=== PATIENT | male | born 1960 | race Caucasian/White ===

== ENCOUNTER 2018-11-11 10:11 | Outpatient (REF) | payer OTHER, SELFPAY ==
[2018-11-11 22:18] LABS: ALT 45 U/L (12-78); AST 22 U/L (15-37); Albumin 3.6 g/dL (3.4-5.0); Alkaline Phosphatase 58 U/L (46-116); BUN 16 mg/dL (7-18); Bilirubin, Total 0.4 mg/dL (0.2-1.0); CREATININE 0.87 mg/dL (0.70-1.30); Calculated LDL 162 mg/dL; Chloride 102 mmol/L (98-107); Cholesterol 242 mg/dL (50-200); Glucose 128 mg/dL (70-100); HDL Cholesterol 38 mg/dL (40-60); Sodium 139 mmol/L (136-145); Total Protein 7.5 g/dL (6.4-8.2); Triglyceride 210 mg/dL (30-150)
[2018-11-15 12:28] LABS: PSA, Screening 1.1 ng/ml (0-4.5)
== END 2018-11-11 10:31 ==
LOC: NCHCN 10:11
PROVIDERS: PCP Family Medicine; Visit Provider Family Medicine
DX: Z00.00 Encounter for general adult medical examination without abnormal findings (principal); E78.00 Pure hypercholesterolemia, unspecified; I10 Essential (primary) hypertension; E11.9 Type 2 diabetes mellitus without complications; N40.2 Nodular prostate without lower urinary tract symptoms; Z12.5 Encounter for screening for malignant neoplasm of prostate
CPT/HCPCS: 80053; 80061; 83721; 84153

== ENCOUNTER 2019-02-02 08:42 | Outpatient (REF) | payer OTHER, SELFPAY ==
[2019-02-02 22:38] LABS: ALT 42 U/L (16-63); AST 20 U/L (15-37); Albumin 3.8 g/dL (3.4-5.0); Alkaline Phosphatase 58 U/L (46-116); Anion Gap 12.5 mmol/L (3-11); BUN 10 mg/dL (7-18); Bilirubin, Total 0.4 mg/dL (0.2-1.0); CO2 25.5 mmol/L (21.0-32.0); CREATININE 0.92 mg/dL (0.70-1.30); Calcium 8.9 mg/dL (8.5-10.1); Calculated LDL 126 mg/dL; Chloride 101 mmol/L (98-107); Cholesterol 211 mg/dL (50-200); Glucose 130 mg/dL (70-100); HDL Cholesterol 39 mg/dL (40-60); Potassium 3.8 mmol/L (3.5-5.1); Sodium 139 mmol/L (136-145); Total Protein 7.7 g/dL (6.4-8.2); Triglyceride 233 mg/dL (30-150)
[2019-02-03 05:02] LABS: Vitamin D 25 Total 17.1 ng/ml (30-100)
== END 2019-02-02 09:02 ==
LOC: NCHCN 08:42
PROVIDERS: PCP Family Medicine; Visit Provider Family Medicine
DX: E11.9 Type 2 diabetes mellitus without complications (principal); E78.00 Pure hypercholesterolemia, unspecified; M79.10 Myalgia, unspecified site
CPT/HCPCS: 80053; 80061; 82306; 84443

== ENCOUNTER 2019-04-26 20:37 | Outpatient (REF) | payer OTHER, SELFPAY ==
[2019-04-26 21:24] LABS: Hemoglobin A1C 6.6 % (4.5-6.2)
[2019-04-27 09:00] LABS: Vitamin D 25 Total 31.5 ng/ml (30-100)
== END 2019-04-26 20:57 ==
LOC: NCHCN 20:37
PROVIDERS: PCP Family Medicine; Visit Provider Family Medicine
DX: E11.9 Type 2 diabetes mellitus without complications (principal)
CPT/HCPCS: 82306; 83036

== ENCOUNTER 2019-10-25 22:30 | Outpatient (REF) | payer OTHER, SELFPAY ==
[2019-10-25 22:22] LABS: COMMENT (LAB VIEW ONLY) 33.18 mg/dL; Microalb ug/mg Crea 27.7 ug/mg Cr
== END 2019-10-25 22:50 ==
LOC: NCHCN 22:30
PROVIDERS: PCP Family Medicine; Visit Provider Family Medicine
DX: E11.9 Type 2 diabetes mellitus without complications (principal)
CPT/HCPCS: 82043; 82570

== ENCOUNTER 2020-04-18 08:46 | Outpatient (REF) | payer OTHER, SELFPAY ==
[2020-04-18 22:44] LABS: ALT 44 U/L (16-63); AST 19 U/L (15-37); Albumin 3.9 g/dL (3.4-5.0); Alkaline Phosphatase 52 U/L (46-116); Anion Gap 10.6 mmol/L (3-11); BUN 13 mg/dL (7-18); Bilirubin, Total 0.4 mg/dL (0.2-1.0); CO2 25.4 mmol/L (21.0-32.0); CREATININE 1.06 mg/dL (0.70-1.30); Calcium 9.2 mg/dL (8.5-10.1); Calculated LDL 126 mg/dL (<100); Chloride 102 mmol/L (98-107); Cholesterol 224 mg/dL (<200); Glucose 159 mg/dL (74-106); HDL Cholesterol 40 mg/dL (40-60); Sodium 138 mmol/L (136-145); Total Protein 7.7 g/dL (6.4-8.2); Triglyceride 293 mg/dL (<150)
[2020-04-18 22:56] LABS: Hemoglobin A1C 7.4 % (<5.7)
[2020-04-19 04:43] LABS: Vitamin D 25 Total 40.3 ng/ml (30-100)
[2020-04-19 19:19] LABS: PSA, Screening 1.1 ng/mL (0.0-4.5)
== END 2020-04-18 09:06 ==
LOC: NCHCN 08:46
PROVIDERS: PCP Family Medicine; Visit Provider Family Medicine
DX: Z00.00 Encounter for general adult medical examination without abnormal findings (principal); I10 Essential (primary) hypertension; E11.9 Type 2 diabetes mellitus without complications; E55.9 Vitamin D deficiency, unspecified; M79.10 Myalgia, unspecified site; N40.2 Nodular prostate without lower urinary tract symptoms; N52.9 Male erectile dysfunction, unspecified; Z12.5 Encounter for screening for malignant neoplasm of prostate
CPT/HCPCS: 80053; 80061; 82306; 84153; 83036

== ENCOUNTER 2021-04-22 19:22 | Outpatient (REF) | payer OTHER, SELFPAY ==
[2021-04-22 19:08] LABS: COMMENT (LAB VIEW ONLY) 75.63 mg/dL; Microalb ug/mg Crea 9.4 ug/mg Cr
[2021-04-22 19:10] LABS: ALT 31 U/L (16-63); AST 13 U/L (15-37); Albumin 3.6 g/dL (3.4-5.0); Alkaline Phosphatase 55 U/L (46-116); Anion Gap 9.7 mmol/L (3-11); BUN 16 mg/dL (7-18); Bilirubin, Total 0.4 mg/dL (0.2-1.0); CO2 27.3 mmol/L (21.0-32.0); CREATININE 0.9 mg/dL (0.70-1.30); Calculated LDL 131 mg/dL (<100); Chloride 102 mmol/L (98-107); Cholesterol 195 mg/dL (<200); Glucose 135 mg/dL (74-106); HDL Cholesterol 42 mg/dL (40-60); Potassium 4.2 mmol/L (3.5-5.1); Sodium 139 mmol/L (136-145); Total Protein 7.3 g/dL (6.4-8.2); Triglyceride 112 mg/dL (<150)
[2021-04-23 17:56] LABS: PSA, Screening 1.5 ng/mL (0.0-4.5)
== END 2021-04-22 19:23 | disposition home or self-care (01) ==
LOC: NCHCN 19:22
PROVIDERS: PCP Family Medicine; Visit Provider Family Medicine
DX: E11.9 Type 2 diabetes mellitus without complications (principal); I10 Essential (primary) hypertension; E78.5 Hyperlipidemia, unspecified; Z00.00 Encounter for general adult medical examination without abnormal findings; Z12.5 Encounter for screening for malignant neoplasm of prostate
CPT/HCPCS: 80053; 80061; 84153; 82043; 82570; 83036

== ENCOUNTER 2022-02-25 16:15 | Outpatient (REF) | payer OTHER, SELFPAY ==
[2022-02-25 17:29] LABS: COMMENT (LAB VIEW ONLY) 43.57 mg/dL; Microalb ug/mg Crea 13.3 ug/mg Cr
== END 2022-02-25 16:16 | disposition home or self-care (01) ==
LOC: NCHCN 16:15
PROVIDERS: PCP Family Medicine; Visit Provider Family Medicine
DX: E11.9 Type 2 diabetes mellitus without complications (principal)
CPT/HCPCS: 82043; 82570

== ENCOUNTER 2022-05-30 11:50 | Outpatient (REF) | payer OTHER, SELFPAY ==
[2022-05-30 16:01] LABS: ALT 25 U/L (16-63); AST 22 U/L (15-37); Albumin 3.8 g/dL (3.4-5.0); Alkaline Phosphatase 52 U/L (46-116); Anion Gap 8.2 mmol/L (3-11); BUN 19 mg/dL (7-18); Bilirubin, Total 0.5 mg/dL (0.2-1.0); CO2 27.8 mmol/L (21.0-32.0); CREATININE 0.9 mg/dL (0.70-1.30); Calcium 9.4 mg/dL (8.5-10.1); Calculated LDL 117 mg/dL (<100); Chloride 102 mmol/L (98-107); Cholesterol 199 mg/dL (<200); Estimated GFR 95.37 (mL/min/1.73m2); Glucose 115 mg/dL (74-106); HDL Cholesterol 49 mg/dL (40-60); Potassium 3.9 mmol/L (3.5-5.1); Sodium 138 mmol/L (136-145); Total Protein 8.2 g/dL (6.4-8.2); Triglyceride 168 mg/dL (<150)
[2022-05-30 23:08] LABS: PSA, Screening 1.4 ng/mL (<=4.5)
== END 2022-05-30 11:51 | disposition home or self-care (01) ==
LOC: NCHCN 11:50
PROVIDERS: PCP Family Medicine; Visit Provider Family Medicine
DX: Z00.00 Encounter for general adult medical examination without abnormal findings (principal); E11.9 Type 2 diabetes mellitus without complications; I10 Essential (primary) hypertension; E78.00 Pure hypercholesterolemia, unspecified; Z12.5 Encounter for screening for malignant neoplasm of prostate
CPT/HCPCS: 80053; 80061; 84153

== ENCOUNTER 2023-01-06 21:42 | Outpatient (REF) | payer OTHER, MEDICARE, SELFPAY ==
[2023-01-06 21:31] LABS: COMMENT (LAB VIEW ONLY) 77.77 mg/dL; Microalb ug/mg Crea 10.8 ug/mg Cr
== END 2023-01-06 21:43 | disposition home or self-care (01) ==
LOC: NCHCN 21:42
PROVIDERS: PCP Family Medicine; Visit Provider Family Medicine
DX: E11.9 Type 2 diabetes mellitus without complications (principal)
CPT/HCPCS: 82043; 82570

== ENCOUNTER 2023-04-22 13:12 | Outpatient (REF) | payer OTHER, SELFPAY ==
[2023-04-22 15:41] LABS: Magnesium 1.7 mg/dL (1.8-2.4); TSH (W/Ref FT4) 1.11 uIU/mL (0.36-3.74); Vitamin B12 366 pg/mL (193-986)
[2023-04-22 16:00] LABS: Creatine Kinase 87 U/L (39-308)
== END 2023-04-22 13:13 | disposition home or self-care (01) ==
LOC: NCHCN 13:12
PROVIDERS: PCP Family Medicine; Visit Provider Family Medicine
DX: R25.3 Fasciculation (principal)
CPT/HCPCS: 82550; 82607; 83735; 84443

== ENCOUNTER 2023-07-01 17:36 | Outpatient (REF) | payer MEDICARE, SELFPAY ==
[2023-07-01 16:39] LABS: Hemoglobin A1C 6.2 % (<5.7)
[2023-07-01 16:57] LABS: ALT 39 U/L (16-63); AST 26 U/L (15-37); Albumin 3.7 g/dL (3.4-5.0); Alkaline Phosphatase 51 U/L (46-116); Anion Gap 10.6 mmol/L (3-11); BUN 9 mg/dL (7-18); Bilirubin, Total 0.4 mg/dL (0.2-1.0); CO2 26.4 mmol/L (21.0-32.0); CREATININE 0.9 mg/dL (0.70-1.30); Calcium 9.7 mg/dL (8.5-10.1); Calculated LDL 140 mg/dL (<100); Chloride 104 mmol/L (98-107); Cholesterol 222 mg/dL (<200); Estimated GFR 94.78 (mL/min/1.73m2); Glucose 131 mg/dL (74-106); HDL Cholesterol 51 mg/dL (40-60); Potassium 3.9 mmol/L (3.5-5.1); Sodium 141 mmol/L (136-145); Triglyceride 158 mg/dL (<150)
[2023-07-01 22:35] LABS: PSA, Screening 1.8 ng/mL (<=4.5)
== END 2023-07-01 17:37 | disposition home or self-care (01) ==
LOC: NCHCN 17:36
PROVIDERS: PCP Family Medicine; Visit Provider Family Medicine
DX: E78.00 Pure hypercholesterolemia, unspecified (principal); E11.9 Type 2 diabetes mellitus without complications; Z12.5 Encounter for screening for malignant neoplasm of prostate
CPT/HCPCS: 80053; 80061; 84153; 83036

== ENCOUNTER 2024-02-04 12:15 | Outpatient (REF) | payer MEDICARE, SELFPAY ==
--- OUTSIDE RECORDS SUMMARY | 2024-02-04 12:18 | XMS_ITS ---
Author Organization Unknown Address [address] [place] [address] [phone] Phone Care Team Providers Care Slate Roofer Name Role Phone JOURDAN GONSALES Registered Nurse Unavailable SHAHID Lemos Attending Unavailable MAC Lemos Primary Unavailable UNLISTED PROVIDER - REQUESTED Xhandoff Un available Results PT PROTHROMBIN TIME* - Colle ct Date/Time: 07/20/2022 10:44 [facility] ID: [id number] [address] [place] [address], [address] LOINC: 5902-2 Test Value Unit Reference Range Code Code System Flag PROTIME 10.4 seconds L=9.3 H=11.4 5902-2 LOINC INR 1.04 L=2.00 H=3.00 08136-3 LOINC L PTT PARTIAL THROMBOPLASTIN T JEAN* - Collect Date/Time: 07/20/2022 10:44 [facility] ID: [id number] [address] [place] [address], [phone] LOINC: 09126-5 Test Value Unit Reference Range Code Code System Flag PTT 24.8 seconds L=24.5 H=32.8 36298-9 LOINC TROPONIN HIGH SENSITIVITY* - Collect Date/Time: 07/20/2022 10:44 [facility] ID: [id number] [address] [place] [address], [address] LOINC: 06037-1 Test Value Unit Reference Range Code Code System Flag TROPONIN HS 7.2 pg/mL L=0.0 H=60.4 Specimen seq. RANDOM CBC W/ DIFFERENTIAL* - Colle ct Date/Time: 07/20/2022 10:44 [facility] ID: [id number] [address] [place] [address], [address] LOINC: 58926-5 Test Value Unit Reference Range Code Code System Flag WBC 11.03 th/cmm L=5.00 H=10.00 6690-2 LOINC H NEUT % 70.9 % L=40.0 H=80.0 LYMPH % 17.0 % L=10.0 H=50.0 MONO % 10.8 % L=2.0 H=12.0 19155-3 LOINC EOS % 0.5 % L=0.0 H=8.0 BASO % 0.3 % L=0.0 H=3.0 IG % 0.5 % L=0.0 H=1.1 2514-8 LOINC NRBC % 0.0 % L=0.0 H=0.0 15901-3 LOINC NEUT abs count 7.8 th/cmm L=1.6 H=8.4 751-8 LOINC LYMPH abs count 1.9 th/cmm L=1.5 H=4.0 731-0 LOINC MONO abs count 1.2 th/cmm L=0.2 H=1.0 742-7 LOINC H EOS abs count 0.1 th/cmm L=0.0 H=0.5 711-2 LOINC BASO abs count 0.0 th/cmm L=0.0 H=0.2 704-7 LOINC IG abs count 0.1 th/cmm L=0.0 H=0.1 93101-1 LOINC NRBC abs count 0.0 mil/cmm L=0.0 H=0.0 23436-8 LOINC RBC 5.02 mil/cmm L=4.30 H=6.20 789-8 LOINC HEMOGLOBIN 15.4 gm/dL L=13.0 H=17.0 718-7 LOINC HEMATOCRIT 45 % L=45 H=52 4544-3 LOINC MCV 89 fL L=82 H=92 787-2 LOINC MCH 30.7 pg L=27.0 H=31.0 785-6 LOINC MCHC 34.6 % L=32.0 H=36.0 786-4 LOINC RDW-SD 43.0 fL L=39.0 H=49.0 788-0 LOINC PLATELET COUNT 202 th/cmm L=150 H=450 777-3 LOINC BASIC METABOLIC PANEL (BMP) - Collect Date/Time: 07/20/2022 10:44 [facility] ID: [id number] - [id number] [address] [place], [place], [address] LOINC: 29249-9 Test Value Unit Reference Range Code Code System Flag GLUCOSE 142 mg/dL L=70 H=116 2345-7 LOINC H BUN 14 mg/dL L=6 H=25 3094-0 LOINC CREATININE 0.91 mg/dL L=0.67 H=1.17 2160-0 LOINC SODIUM SERUM 137 mmol/L L=136 H=145 2951-2 LOINC POTASSIUM SERUM 4.1 mmol/L L=3.4 H=5.2 2823-3 LOINC [place] SERUM 104 mmol/L L=96 H=110 2075-0 LOINC CARBON DIOXIDE (CO2) 25 mmol/L L=22 H=34 2028-9 LOINC ANION GAP 7.7 mmol/L 29290-4 LOINC CALCIUM SERUM 9.0 mg/dL L=8.2 H=10.2 80434-6 LOINC AGE 62 years eGFR (non-Afr.Amer.) 84 mL/min 58254-0 LOINC eGFR (Afr-Bulgarian) 101 mL/min 08635-9 [facility] PORT[facility] OR 1V - Co mpleted: 07/20/2022 10:56 LOINC: [facility] [place], [place] [address] PACS AUDIOMETRIC TECHNICIAN REPORT Patient Name: HARRIS,RACQUEL W MRN: Sex: : Age: [id number] M [id number] Account: Accession: Admit: StayType: [id number] 07/20/2022 E/R Ordered: Order ID: Submitted: Ordering Provider: 07/20/2022 10:47 [id number] JEANNIE FORMAN Completed: Technologist: Resulted: 07/20/2022 10:56 SLG 07/20/2022 13:26 Study Description: XR CHEST PORTABLE OR 1V Study Reason: Arrhythmia TECHNIQUE: 2D digital imaging was performed. COMPARISON: Prior chest x-ray 2016 FINDINGS: Single AP view Heart size is normal. The mediastinum is not widened. Lungs are clear. No infiltrates nor obvious pleural effusions. Atelectasis or scarring adjacent to the lower left heart border is unchanged from 2016. IMPRESSION: No acute pulmonary findings on this single AP portable view of the chest. Report Digitally Signed by Mane Capone on 07/20/2022 01:26 PM EST Social History Type Status Start Date End Date Code Code Syst em Smoking History Never smoker (Never Smoked) 080957530 SNOMED CT Sex Male Vital Signs Vital Sign Value Unit Schoolcraft Value Schoolcraft Unit Date/Time Recent/Initial? Code Code System Body Mass Index 29.65 kg/m2 07/20/2022 10:36 Initial 30226 -5 LOINC Systolic Blood Pressure 120 mm[Hg] 07/20/2022 12:30 Most Recent 8480- 6 LOINC Diastolic Blood Pressure 86 mm[Hg] 07/20/2022 12:30 Most Recent 8462- 4 LOINC Systolic Blood Pressure 124 mm[Hg] 07/20/2022 10:36 Initial 8480- 6 LOINC Diastolic Blood Pressure 79 mm[Hg] 07/20/2022 10:36 Initial 8462- 4 LOINC Body Surface Area 2.06 m2 07/20/2022 10:36 Initial 3140- 1 LOINC Height 172.720 0 cm 68.00 in 07/20/2022 10:36 Initial 8302- 2 LOINC O2 Saturation 96 % 2022 12:30 Most Recent 40270 -5 LOINC O2 Saturation 97 % 2022 10:36 Initial 50072 -5 LOINC Pulse 77.0 /min 07/20/2022 12:30 Most Recent 8867- 4 LOINC Pulse 148.0 /min 07/20/2022 10:36 Initial 8867- 4 LOINC Respiration 16 /min 07/21/19 12:30 Most Recent 9279- 1 LOINC Respiration 10 /min 07/21/19 10:36 Initial 9279- 1 LOINC Temperature 35.7 Claudia 96.3 F 07/21/19 10:36 Initial 8310- 5 LOINC Weight 88.45 kg 195.00 lbs 07/20/2022 10:36 Initial 12182 -7 LOINC Medications Medication Start Date End Date Route Frequency Dose Code Code System Medication Instructions Home Meds Xarelto 20MG Oral Tablet 07/20/2022 04/14/2023 ORAL DAILY 1 TABLET 6499916 RxNorm TAKE 1 TABLET ORAL DAILY Metoprolol Succinate 25MG Oral Tablet, Extended Release 07/05/2023 Unknown ORAL DAILY 1 TABLET 466795 RxNorm TAKE 1 TABLET ORAL DAILY Eliquis 5MG Oral Tablet 07/05/2023 Unknown ORAL TWICE A DAY 1 TABLET 2030796 RxNorm TAKE 1 TABLET ORAL TWICE A DAY Assessment You had the following problems:PALPITATIONS Hospital Discharge Instructions Should you have any questions prior to discharge, please contact a member of your healthcare team. If you have left the hospital and have any questions, please contact your primary care physician. Reason For Referral No Data Found Problems Problem Start Date Resolved Date Status Code Code System PALPITATIONS active 15024914 SNOMED- CT AFIB 07/05/2023 resolved 14307155 SNOMED-CT TYPE 2 DIABETES 07/05/2023 resolved 20772664 SNO MED-CT HYPERTENSION 07/05/2023 resolved 38454602 SNOMED -CT Allergies and Adverse Reactions Allergy Substance Reaction Severity Start Date Concern Status Co de Code System LIPITOR Active 749946 RxNorm Plan of Treatment No Data Found Encounters Encounter Diagnosis Start Date Code Code Sys tem Unspecified atrial fibrillation 07/20/2022 SNOMED-CT Personal Care Team Section Performer Name Performer Role Active Date Inactive Da te
--- OUTSIDE RECORDS SUMMARY | 2024-02-04 12:18 | XMS_ITS ---
Author Organization Unknown Address [address] [place] [address] [phone] Phone Care Team Providers Care Computing Architect Name Role Phone DANN CHOI Eddie Attending Unavailable MAC Lemos Primary Unavailable Social History Type Status Start Date End Date Code Code Syst em Smoking History Never smoker (Never Smoked) 054713924 SNOMED CT Sex Male Medications Medication Start Date End Date Route Frequency Dose Code Code System Medication Instructions Home Meds Xarelto 20MG Oral Tablet 07/20/2022 04/14/2023 ORAL DAILY 1 TABLET 0071674 RxNorm TAKE 1 TABLET ORAL DAILY Metoprolol Succinate 25MG Oral Tablet, Extended Release 07/05/2023 Unknown ORAL DAILY 1 TABLET 829815 RxNorm TAKE 1 TABLET ORAL DAILY Eliquis 5MG Oral Tablet 07/05/2023 Unknown ORAL TWICE A DAY 1 TABLET 4571968 RxNorm TAKE 1 TABLET ORAL TWICE A [...] Date Status Code Code System PALPITATIONS active 79759918 SNOMED- CT AFIB 07/05/2023 resolved 08132879 SNOMED-CT TYPE 2 DIABETES 07/05/2023 resolved 59020065 SNO MED-CT HYPERTENSION 07/05/2023 resolved 54229648 SNOMED -CT Allergies and Adverse Reactions Allergy Substance Reaction Severity Start Date Concern Status Co de Code System LIPITOR Active 510612 RxNorm Plan of Treatment No Data Found Encounters Encounter Diagnosis Start Date Code Code Sys tem Chest pain, unspecified 08/14/2022 SNOM ED-CT Personal Care Team Section Performer Name Performer Role Active Date Inactive Da te
--- OUTSIDE RECORDS SUMMARY | 2024-02-04 12:19 | XMS_ITS ---
Author Organization Unknown Address [address] [place] [address] [phone] Phone Care Team Providers Care Muffler Tender Name Role Phone NEETU GRACE Guerra Attending Unavailable MAC Lemos Primary Unavailable Social History Type Status Start Date End Date Code Code Syst em Smoking History Never smoker (Never Smoked) 218105440 SNOMED CT Sex Male Medications Medication Start Date End Date Route Frequency Dose Code Code System Medication Instructions Home Meds Xarelto 20MG Oral Tablet 07/20/2022 04/14/2023 ORAL DAILY 1 TABLET 7468642 RxNorm TAKE 1 TABLET ORAL DAILY Metoprolol Succinate 25MG Oral Tablet, Extended Release 07/05/2023 Unknown ORAL DAILY 1 TABLET 793031 RxNorm TAKE 1 TABLET ORAL DAILY Eliquis 5MG Oral Tablet 07/05/2023 Unknown ORAL TWICE A DAY 1 TABLET 1169327 RxNorm TAKE 1 TABLET ORAL TWICE A [...] Date Status Code Code System PALPITATIONS active 43747416 SNOMED- CT AFIB 07/05/2023 resolved 41504953 SNOMED-CT TYPE 2 DIABETES 07/05/2023 resolved 20964445 SNO MED-CT HYPERTENSION 07/05/2023 resolved 98676668 SNOMED -CT Allergies and Adverse Reactions Allergy Substance Reaction Severity Start Date Concern Status Co de Code System LIPITOR Active 124676 RxNorm Plan of Treatment No Data Found Encounters Encounter Diagnosis Start Date Code Code Sys tem Atrial fibrillation 08/29/2022 58836238 SNOMED-C T Personal Care Team Section Performer Name Performer Role Active Date Inactive Da te
--- OUTSIDE RECORDS SUMMARY | 2024-02-04 12:19 | XMS_ITS ---
Author Organization Unknown Address [address] [place] [address] [phone] Phone Care Team Providers Care Residential Substance Abuse Counselor Name Role Phone NEETU GRACE Mari Attending Unavailable MAC Lemos Primary Unavailable Social History Type Status Start Date End Date Code Code Syst em Smoking History Never smoker (Never Smoked) 207140946 SNOMED CT Sex Male Medications Medication Start Date End Date Route Frequency Dose Code Code System Medication Instructions Home Meds Xarelto 20MG Oral Tablet 07/20/2022 04/14/2023 ORAL DAILY 1 TABLET 0140215 RxNorm TAKE 1 TABLET ORAL DAILY Metoprolol Succinate 25MG Oral Tablet, Extended Release 07/05/2023 Unknown ORAL DAILY 1 TABLET 409163 RxNorm TAKE 1 TABLET ORAL DAILY Eliquis 5MG Oral Tablet 07/05/2023 Unknown ORAL TWICE A DAY 1 TABLET 9604363 RxNorm TAKE 1 TABLET ORAL TWICE A [...] Date Status Code Code System PALPITATIONS active 98199139 SNOMED- CT AFIB 07/05/2023 resolved 22418440 SNOMED-CT TYPE 2 DIABETES 07/05/2023 resolved 39156564 SNO MED-CT HYPERTENSION 07/05/2023 resolved 87808206 SNOMED -CT Allergies and Adverse Reactions Allergy Substance Reaction Severity Start Date Concern Status Co de Code System LIPITOR Active 539171 RxNorm Plan of Treatment No Data Found Encounters Encounter Diagnosis Start Date Code Code Sys tem Obstructive sleep apnea (adult) (pediatric) 10/08/2022 SNOMED-CT Personal Care Team Section Performer Name Performer Role Active Date Inactive Da te
--- OUTSIDE RECORDS SUMMARY | 2024-02-04 12:19 | XMS_ITS ---
Author Organization Unknown Address [address] [place] [address] [phone] Phone Care Team Providers Care Florist Helper Name Role Phone BAUDILIOARGENTINA CHOI Eddie Attending Unavailable MAC Lemos Primary Unavailable Social History Type Status Start Date End Date Code Code Syst em Smoking History Never smoker (Never Smoked) 303023153 SNOMED CT Sex Male Medications Medication Start Date End Date Route Frequency Dose Code Code System Medication Instructions Home Meds Xarelto 20MG Oral Tablet 07/20/2022 04/14/2023 ORAL DAILY 1 TABLET 9010414 RxNorm TAKE 1 TABLET ORAL DAILY Metoprolol Succinate 25MG Oral Tablet, Extended Release 07/05/2023 Unknown ORAL DAILY 1 TABLET 690534 RxNorm TAKE 1 TABLET ORAL DAILY Eliquis 5MG Oral Tablet 07/05/2023 Unknown ORAL TWICE A DAY 1 TABLET 1448823 RxNorm TAKE 1 TABLET ORAL TWICE A [...] Date Status Code Code System PALPITATIONS active 45833529 SNOMED- CT AFIB 07/05/2023 resolved 94812964 SNOMED-CT TYPE 2 DIABETES 07/05/2023 resolved 94265769 SNO MED-CT HYPERTENSION 07/05/2023 resolved 83569834 SNOMED -CT Allergies and Adverse Reactions Allergy Substance Reaction Severity Start Date Concern Status Co de Code System LIPITOR Active 002739 RxNorm Plan of Treatment No Data Found Encounters Encounter Diagnosis Start Date Code Code Sys tem Paroxysmal atrial fibrillation 09/04/2022 875846248 SNOMED-CT Personal Care Team Section Performer Name Performer Role Active Date Inactive Da te
--- OUTSIDE RECORDS SUMMARY | 2024-02-04 12:20 | XMS_ITS ---
Author Organization Unknown Address [address] [place] [address] [phone] Phone Care Team Providers Care It Risk And Assurance Manager Name Role Phone DANN CHOI Eddie Attending Unavailable MAC Lemos Primary Unavailable Social History Type Status Start Date End Date Code Code Syst em Smoking History Never smoker (Never Smoked) 869963389 SNOMED CT Sex Male Medications Medication Start Date End Date Route Frequency Dose Code Code System Medication Instructions Home Meds Xarelto 20MG Oral Tablet 07/20/2022 04/14/2023 ORAL DAILY 1 TABLET 4377768 RxNorm TAKE 1 TABLET ORAL DAILY Metoprolol Succinate 25MG Oral Tablet, Extended Release 07/05/2023 Unknown ORAL DAILY 1 TABLET 908910 RxNorm TAKE 1 TABLET ORAL DAILY Eliquis 5MG Oral Tablet 07/05/2023 Unknown ORAL TWICE A DAY 1 TABLET 6281040 RxNorm TAKE 1 TABLET ORAL TWICE A [...] Date Status Code Code System PALPITATIONS active 44800131 SNOMED- CT AFIB 07/05/2023 resolved 42419509 SNOMED-CT TYPE 2 DIABETES 07/05/2023 resolved 29815262 SNO MED-CT HYPERTENSION 07/05/2023 resolved 87766871 SNOMED -CT Allergies and Adverse Reactions Allergy Substance Reaction Severity Start Date Concern Status Co de Code System LIPITOR Active 803994 RxNorm Plan of Treatment No Data Found Encounters Encounter Diagnosis Start Date Code Code Sys tem Chest pain 02/19/2023 28243926 SNOMED-CT Personal Care Team Section Performer Name Performer Role Active Date Inactive Da te
--- OUTSIDE RECORDS SUMMARY | 2024-02-04 12:20 | XMS_ITS ---
Author Organization Unknown Address [address] [place] [address] [phone] Phone Care Team Providers Care Wire Temperer Name Role Phone NEETU ROMANOOMI Mari Attending Unavailable MAC Lemos Primary Unavailable Social History Type Status Start Date End Date Code Code Syst em Smoking History Never smoker (Never Smoked) 090892503 SNOMED CT Sex Male Medications Medication Start Date End Date Route Frequency Dose Code Code System Medication Instructions Home Meds Xarelto 20MG Oral Tablet 07/20/2022 04/14/2023 ORAL DAILY 1 TABLET 0364767 RxNorm TAKE 1 TABLET ORAL DAILY Metoprolol Succinate 25MG Oral Tablet, Extended Release 07/05/2023 Unknown ORAL DAILY 1 TABLET 053845 RxNorm TAKE 1 TABLET ORAL DAILY Eliquis 5MG Oral Tablet 07/05/2023 Unknown ORAL TWICE A DAY 1 TABLET 9897280 RxNorm TAKE 1 TABLET ORAL TWICE A [...] Date Status Code Code System PALPITATIONS active 83612573 SNOMED- CT AFIB 07/05/2023 resolved 68024753 SNOMED-CT TYPE 2 DIABETES 07/05/2023 resolved 32253631 SNO MED-CT HYPERTENSION 07/05/2023 resolved 09152301 SNOMED -CT Allergies and Adverse Reactions Allergy Substance Reaction Severity Start Date Concern Status Co de Code System LIPITOR Active 358625 RxNorm Plan of Treatment No Data Found Encounters Encounter Diagnosis Start Date Code Code Sys tem Obstructive sleep apnea (adult) (pediatric) 02/25/2023 SNOMED-CT Personal Care Team Section Performer Name Performer Role Active Date Inactive Da te
--- OUTSIDE RECORDS SUMMARY | 2024-02-04 12:21 | XMS_ITS ---
Author Organization Unknown Address [address] [place] [address] [phone] Phone Care Team Providers Care Desk Top Publisher Name Role Phone AUDELIA Lemos Attending Unavailable MAC Lemos Primary Unavailable Social History Type Status Start Date End Date Code Code Syst em Smoking History Never smoker (Never Smoked) 468393376 SNOMED CT Sex Male Medications Medication Start Date End Date Route Frequency Dose Code Code System Medication Instructions Home Meds Xarelto 20MG Oral Tablet 07/20/2022 04/14/2023 ORAL DAILY 1 TABLET 9026699 RxNorm TAKE 1 TABLET ORAL DAILY Metoprolol Succinate 25MG Oral Tablet, Extended Release 07/05/2023 Unknown ORAL DAILY 1 TABLET 233379 RxNorm TAKE 1 TABLET ORAL DAILY Eliquis 5MG Oral Tablet 07/05/2023 Unknown ORAL TWICE A DAY 1 TABLET 4697721 RxNorm TAKE 1 TABLET ORAL TWICE A [...] Date Status Code Code System PALPITATIONS active 91477176 SNOMED- CT AFIB 07/05/2023 resolved 29255303 SNOMED-CT TYPE 2 DIABETES 07/05/2023 resolved 65836027 SNO MED-CT HYPERTENSION 07/05/2023 resolved 06415409 SNOMED -CT Allergies and Adverse Reactions Allergy Substance Reaction Severity Start Date Concern Status Co de Code System LIPITOR Active 832742 RxNorm Plan of Treatment No Data Found Encounters Encounter Diagnosis Start Date Code Code Sys tem Supraventricular tachycardia 03/31/2023 9104674 SNOMED-CT Personal Care Team Section Performer Name Performer Role Active Date Inactive Da te
--- OUTSIDE RECORDS SUMMARY | 2024-02-04 12:21 | XMS_ITS ---
Author Organization Unknown Address [address] [place] [address] [phone] Phone Care Team Providers Care Direct Care Worker Name Role Phone NEETU ROMANOOMI Mari Attending Unavailable MAC Lemos Primary Unavailable Social History Type Status Start Date End Date Code Code Syst em Smoking History Never smoker (Never Smoked) 121609698 SNOMED CT Sex Male Medications Medication Start Date End Date Route Frequency Dose Code Code System Medication Instructions Home Meds Metoprolol Succinate 25MG Oral Tablet, Extended Release 07/05/2023 Unknown ORAL DAILY 1 TABLET 312994 RxNorm DON E 1 TABLET ORAL DAILY Eliquis 5MG Oral Tablet 07/05/2023 Unknown ORAL TWICE A DAY 1 TABLET 3879261 RxNorm TAKE 1 TABLET ORAL TWICE A [...] Date Status Code Code System PALPITATIONS active 41430046 SNOMED- CT AFIB 07/05/2023 resolved 37101985 SNOMED-CT TYPE 2 DIABETES 07/05/2023 resolved 14769178 SNO MED-CT HYPERTENSION 07/05/2023 resolved 23416828 SNOMED -CT Allergies and Adverse Reactions Allergy Substance Reaction Severity Start Date Concern Status Co de Code System LIPITOR Active 857731 RxNorm Plan of Treatment No Data Found Encounters Encounter Diagnosis Start Date Code Code Sys tem Obstructive sleep apnea (adult) (pediatric) 07/01/2023 SNOMED-CT Personal Care Team Section Performer Name Performer Role Active Date Inactive Da te
--- OUTSIDE RECORDS SUMMARY | 2024-02-04 12:21 | XMS_ITS ---
Author Organization Unknown Address [address] [place] [address] [phone] Phone Care Team Providers Care Salesperson [employer] Name Role Phone EMILY MORTON Registered Nurse Unavailable ANNETTE Guerra Attending Unavailable MAC Lemos Primary Unavailable UNLISTED PROVIDER - REQUESTED Xhandoff Un available Results TROPONIN HIGH SENSITIVITY* - Collect Date/Time: 04/14/2023 07:16 [facility] ID: [id number] [address] [place] [address], [address] LOINC: 27678-5 Test Value Unit Reference Range Code Code System Flag TROPONIN HS 4.7 pg/mL L=0.0 H=60.4 Specimen seq. RANDOM COMPREHENSIVE METABOLIC PANE L (CMP) - Collect Date/Time: 04/14/2023 07:16 [facility] ID: [id number] [address] [place] [address], [address] LOINC: 60006-6 Test Value Unit Reference Range Code Code System Flag GLUCOSE 118 mg/dL L=70 H=116 2345-7 LOINC H BUN 19 mg/dL L=6 H=25 3094-0 LOINC CREATININE 0.91 mg/dL L=0.67 H=1.17 2160-0 LOINC SODIUM SERUM 138 mmol/L L=136 H=145 2951-2 LOINC POTASSIUM SERUM 3.7 mmol/L L=3.4 H=5.2 2823-3 LOINC CHLORIDE SERUM 101 mmol/L L=96 H=110 2075-0 LOINC CARBON DIOXIDE (CO2) 24 mmol/L L=22 H=34 2028-9 LOINC ANION GAP 12.8 mmol/L 48170-6 LOINC CALCIUM SERUM 9.4 mg/dL L=8.2 H=10.2 95115-7 LOINC BILIRUBIN TOTAL 0.4 mg/dL L=0.0 H=1.3 1975-2 LOINC ALK. PHOS. 46 U/L L=46 H=116 6768-6 LOINC SGOT (AST) 17 U/L L=15 H=37 1920-8 LOINC SGPT (ALT) 29 U/L L=12 H=78 1742-6 LOINC TOTAL PROTEIN 7.9 gm/dL L=6.0 H=8.0 2885-2 LOINC ALBUMIN 3.5 gm/dL L=3.4 H=5.0 1751-7 LOINC AGE 63 years eGFR (non-Afr.Amer.) 84 mL/min 13490-8 LOINC eGFR (Afr-Singaporean) 101 mL/min 65306-4 LOINC CBC W/ DIFFERENTIAL* - Colle ct Date/Time: 04/14/2023 07:16 [facility] ID: [id number] [address] [place], [place], [address] LOINC: 45728-3 Test Value Unit Reference Range Code Code System Flag WBC 9.11 th/cmm L=5.00 H=10.00 6690-2 LOINC NEUT % 60.3 % L=40.0 H=80.0 LYMPH % 29.3 % L=10.0 H=50.0 MONO % 8.3 % L=2.0 H=12.0 93362-5 LOINC EOS % 1.4 % L=0.0 H=8.0 BASO % 0.3 % L=0.0 H=3.0 IG % 0.4 % L=0.0 H=1.1 2514-8 LOINC NRBC % 0.0 % L=0.0 H=0.0 54458-1 LOINC NEUT abs count 5.5 th/cmm L=1.6 H=8.4 751-8 LOINC LYMPH abs count 2.7 th/cmm L=1.5 H=4.0 731-0 LOINC MONO abs count 0.8 th/cmm L=0.2 H=1.0 742-7 LOINC EOS abs count 0.1 th/cmm L=0.0 H=0.5 711-2 LOINC BASO abs count 0.0 th/cmm L=0.0 H=0.2 704-7 LOINC IG abs count 0.0 th/cmm L=0.0 H=0.1 26557-9 LOINC NRBC abs count 0.0 mil/cmm L=0.0 H=0.0 59713-3 LOINC RBC 5.08 mil/cmm L=4.30 H=6.20 789-8 LOINC HEMOGLOBIN 15.2 gm/dL L=13.0 H=17.0 718-7 LOINC HEMATOCRIT 45 % L=45 H=52 4544-3 LOINC MCV 88 fL L=82 H=92 787-2 LOINC MCH 29.9 pg L=27.0 H=31.0 785-6 LOINC MCHC 34.0 % L=32.0 H=36.0 786-4 LOINC RDW-SD 42.3 fL L=39.0 H=49.0 788-0 LOINC PLATELET COUNT 227 th/cmm L=150 H=450 777-3 LOINC Social History Type Status Start Date End Date Code Code Syst em Smoking History Never smoker (Never Smoked) 196730313 SNOMED CT Sex Male Vital Signs Vital Sign Value Unit [place] Value [place] Unit Date/Time Recent/Initial? Code Code System Body Mass Index 35.24 kg/m2 04/14/2023 07:08 Initial 72190 -5 LOINC Systolic Blood Pressure 112 mm[Hg] 04/14/2023 09:15 Most Recent 8480- 6 LOINC Diastolic Blood Pressure 77 mm[Hg] 04/14/2023 09:15 Most Recent 8462- 4 LOINC Systolic Blood Pressure 143 mm[Hg] 04/14/2023 07:08 Initial 8480- 6 LOINC Diastolic Blood Pressure 90 mm[Hg] 04/14/2023 07:08 Initial 8462- 4 LOINC Body Surface Area 2.20 m2 04/14/2023 07:08 Initial 3140- 1 LOINC Height 170.180 0 cm 67.00 in 04/14/2023 07:08 Initial 8302- 2 LOINC O2 Saturation 95 % 2022 09:15 Most Recent 20231 -5 LOINC O2 Saturation 97 % 2022 07:08 Initial 73012 -5 LOINC Pulse 79.0 /min 04/14/2023 09:15 Most Recent 8867- 4 LOINC Pulse 89.0 /min 04/14/2023 07:08 Initial 8867- 4 LOINC Respiration 15 /min 04/14/20 09:15 Most Recent 9279- 1 LOINC Respiration 16 /min 04/14/20 07:08 Initial 9279- 1 LOINC Temperature 36.5 Claudia 97.7 F 04/14/20 07:08 Initial 8310- 5 LOINC Weight 102.06 kg 225.00 lbs 04/14/2023 07:08 Initial 07900 -7 LOINC Medications Medication Start Date End Date Route Frequency Dose Code Code System Medication Instructions Home Meds Xarelto 20MG Oral Tablet 07/20/2022 04/14/2023 ORAL DAILY 1 TABLET 9841057 RxNorm TAKE 1 TABLET ORAL DAILY Metoprolol Succinate 25MG Oral Tablet, Extended Release 07/05/2023 Unknown ORAL DAILY 1 TABLET 731586 RxNorm TAKE 1 TABLET ORAL DAILY Eliquis 5MG Oral Tablet 07/05/2023 Unknown ORAL TWICE A DAY 1 TABLET 5802934 RxNorm TAKE 1 TABLET ORAL TWICE A [...] Date Status Code Code System PALPITATIONS active 46571429 SNOMED- CT AFIB 07/05/2023 resolved 20647187 SNOMED-CT TYPE 2 DIABETES 07/05/2023 resolved 98753654 SNO MED-CT HYPERTENSION 07/05/2023 resolved 71653294 SNOMED -CT Allergies and Adverse Reactions Allergy Substance Reaction Severity Start Date Concern Status Co de Code System LIPITOR Active 536712 RxNorm Plan of Treatment OUTPATIENT PLAN: Additional Physician Instructions: Consider decreasing caffeine intake. HOSPITAL COURSE AND TESTING: Lab Results: This Visit Test Results Units Reference Range Ordered Collected Status WBC 9.11 th/cmm L=5.00 H=10.00 04/14/2023 07:20 04/14/2023 07:16 final NEUT % 60.3 % L=40.0 H=80.0 04/14/2023 07:20 04/14/2023 07:16 final LYMPH % 29.3 % L=10.0 H=50.0 04/14/2023 07:20 04/14/2023 07:16 final MONO % 8.3 % L=2.0 H=12.0 04/14/2023 07:20 04/14/2023 07:16 final EOS % 1.4 % L=0.0 H=8.0 04/14/2023 07:20 04/14/2023 07:16 final BASO % 0.3 % L=0.0 H=3.0 04/14/2023 07:20 04/14/2023 07:16 final IG % 0.4 % L=0.0 H=1.1 04/14/2023 07:20 04/14/2023 07:16 final NRBC % 0.0 % L=0.0 H=0.0 04/14/2023 07:20 04/14/2023 07:16 final NEUT abs count 5.5 th/cmm L=1.6 H=8.4 04/14/2023 07:20 04/14/2023 07:16 final LYMPH abs count 2.7 th/cmm L=1.5 H=4.0 04/14/2023 07:20 04/14/2023 07:16 final MONO abs count 0.8 th/cmm L=0.2 H=1.0 04/14/2023 07:20 04/14/2023 07:16 final EOS abs count 0.1 th/cmm L=0.0 H=0.5 04/14/2023 07:20 04/14/2023 07:16 final BASO abs count 0.0 th/cmm L=0.0 H=0.2 04/14/2023 07:20 04/14/2023 07:16 final IG abs count 0.0 th/cmm L=0.0 H=0.1 04/14/2023 07:20 04/14/2023 07:16 final NRBC abs count 0.0 mil/cmm L=0.0 H=0.0 04/14/2023 07:20 04/14/2023 07:16 final RBC 5.08 mil/cmm L=4.30 H=6.20 04/14/2023 07:20 04/14/2023 07:16 final HEMOGLOBIN 15.2 gm/dL L=13.0 H=17.0 04/14/2023 07:20 04/14/2023 07:16 final HEMATOCRIT 45 % L=45 H=52 04/14/2023 07:20 04/14/2023 07:16 final MCV 88 fL L=82 H=92 04/14/2023 07:20 04/14/2023 07:16 final MCH 29.9 pg L=27.0 H=31.0 04/14/2023 07:20 04/14/2023 07:16 final MCHC 34.0 % L=32.0 H=36.0 04/14/2023 07:20 04/14/2023 07:16 final RDW-SD 42.3 fL L=39.0 H=49.0 04/14/2023 07:20 04/14/2023 07:16 final PLATELET COUNT 227 th/cmm L=150 H=450 04/14/2023 07:20 04/14/2023 07:16 final GLUCOSE 118 H mg/dL L=70 H=116 04/14/2023 07:20 04/14/2023 07:16 final BUN 19 mg/dL L=6 H=25 04/14/2023 07:20 04/14/2023 07:16 final CREATININE 0.91 mg/dL L=0.67 H=1.17 04/14/2023 07:20 04/14/2023 07:16 final SODIUM SERUM 138 mmol/L L=136 H=145 04/14/2023 07:20 04/14/2023 07:16 final POTASSIUM SERUM 3.7 mmol/L L=3.4 H=5.2 04/14/2023 07:20 04/14/2023 07:16 final CHLORIDE SERUM 101 mmol/L L=96 H=110 04/14/2023 07:20 04/14/2023 07:16 final CARBON DIOXIDE (CO2) 24 mmol/L L=22 H=34 04/14/2023 07:20 04/14/2023 07:16 final ANION GAP 12.8 mmol/L 04/14/2023 07:20 04/14/2023 07:16 final CALCIUM SERUM 9.4 mg/dL L=8.2 H=10.2 04/14/2023 07:20 04/14/2023 07:16 final BILIRUBIN TOTAL 0.4 mg/dL L=0.0 H=1.3 04/14/2023 07:20 04/14/2023 07:16 final ALK. PHOS. 46 U/L L=46 H=116 04/14/2023 07:20 04/14/2023 07:16 final SGOT (AST) 17 U/L L=15 H=37 04/14/2023 07:20 04/14/2023 07:16 final SGPT (ALT) 29 U/L L=12 H=78 04/14/2023 07:20 04/14/2023 07:16 final TOTAL PROTEIN 7.9 gm/dL L=6.0 H=8.0 04/14/2023 07:20 04/14/2023 07:16 final ALBUMIN 3.5 gm/dL L=3.4 H=5.0 04/14/2023 07:20 04/14/2023 07:16 final AGE 63 years 04/14/2023 07:20 04/14/2023 07:16 final eGFR (non-Afr.Amer.) 84 mL/min 04/14/2023 07:20 04/14/2023 07:16 final eGFR (Afr-Singaporean) 101 mL/min 04/14/2023 07:20 04/14/2023 07:16 final TROPONIN HS 4.7 pg/mL L=0.0 H=60.4 04/14/2023 07:20 04/14/2023 07:16 final Specimen seq. RANDOM RANDOM 04/14/2023 07:20 04/14/2023 07:16 final EKG ORDER TRACING 12 LEAD 04/14/2023 07:20 registered EKG ORDER TRACING 12 LEAD 04/14/2023 07:04 registered Encounters Encounter Diagnosis Start Date Code Code Sys tem Palpitations 04/14/2023 SNOMED-CT Personal Care Team Section Performer Name Performer Role Active Date Inactive Da te
--- OUTSIDE RECORDS SUMMARY | 2024-02-04 12:21 | XMS_ITS ---
Author Organization Unknown Address [address] [place] [address] [phone] Phone Care Team Providers Care Lay Out Inspector Name Role Phone REMEDIOS YEAGER Registered Nurse Unavailable TERRI HERNANDEZ Registered Nurse Unavailable AMY Guerra Attending Unavailable MAC Lemos Primary Unavailable UNLISTED PROVIDER - REQUESTED Xhandoff Un available Results COMPREHENSIVE METABOLIC PANE L (CMP) - Collect Date/Time: 07/05/2023 09:05 [facility] ID: [id number] [address] [place] [place] [address], [address] LOINC: 00537-0 Test Value Unit Reference Range Code Code System Flag GLUCOSE 155 mg/dL L=70 H=116 2345-7 LOINC H BUN 9 mg/dL L=6 H=25 3094-0 LOINC CREATININE 0.89 mg/dL L=0.67 H=1.17 2160-0 LOINC SODIUM SERUM 140 mmol/L L=136 H=145 2951-2 LOINC POTASSIUM SERUM 4.0 mmol/L L=3.4 H=5.2 2823-3 LOINC CHLORIDE SERUM 103 mmol/L L=96 H=110 2075-0 LOINC CARBON DIOXIDE (CO2) 26 mmol/L L=22 H=34 2028-9 LOINC ANION GAP 11.1 mmol/L 20653-3 LOINC CALCIUM SERUM 9.1 mg/dL L=8.2 H=10.2 03009-3 LOINC BILIRUBIN TOTAL 0.5 mg/dL L=0.0 H=1.3 1975-2 LOINC ALK. PHOS. 47 U/L L=46 H=116 6768-6 LOINC SGOT (AST) 18 U/L L=15 H=37 1920-8 LOINC SGPT (ALT) 32 U/L L=12 H=78 1742-6 LOINC TOTAL PROTEIN 8.0 gm/dL L=6.0 H=8.0 2885-2 LOINC ALBUMIN 3.5 gm/dL L=3.4 H=5.0 1751-7 LOINC AGE 63 years eGFR (non-Afr.Amer.) 86 mL/min 50308-7 LOINC eGFR (Afr-French) 104 mL/min 94106-3 LOINC CBC W/ DIFFERENTIAL* - Colle ct Date/Time: 07/05/2023 09:05 [facility] ID: [id number] [address] [place], [place], [facility] LOINC: 31039-3 Test Value Unit Reference Range Code Code System Flag WBC 9.13 th/cmm L=5.00 H=10.00 6690-2 LOINC NEUT % 59.9 % L=40.0 H=80.0 LYMPH % 29.4 % L=10.0 H=50.0 MONO % 8.2 % L=2.0 H=12.0 50079-8 LOINC EOS % 1.3 % L=0.0 H=8.0 BASO % 0.3 % L=0.0 H=3.0 IG % 0.9 % L=0.0 H=1.1 2514-8 LOINC NRBC % 0.0 % L=0.0 H=0.0 07432-6 LOINC NEUT abs count 5.5 th/cmm L=1.6 H=8.4 751-8 LOINC LYMPH abs count 2.7 th/cmm L=1.5 H=4.0 731-0 LOINC MONO abs count 0.8 th/cmm L=0.2 H=1.0 742-7 LOINC EOS abs count 0.1 th/cmm L=0.0 H=0.5 711-2 LOINC BASO abs count 0.0 th/cmm L=0.0 H=0.2 704-7 LOINC IG abs count 0.1 th/cmm L=0.0 H=0.1 77456-0 LOINC NRBC abs count 0.0 mil/cmm L=0.0 H=0.0 84932-5 LOINC RBC 5.39 mil/cmm L=4.30 H=6.20 789-8 LOINC HEMOGLOBIN 16.2 gm/dL L=13.0 H=17.0 718-7 LOINC HEMATOCRIT 47 % L=45 H=52 4544-3 LOINC MCV 88 fL L=82 H=92 787-2 LOINC MCH 30.1 pg L=27.0 H=31.0 785-6 LOINC MCHC 34.3 % L=32.0 H=36.0 786-4 LOINC RDW-SD 42.5 fL L=39.0 H=49.0 788-0 LOINC PLATELET COUNT 226 th/cmm L=150 H=450 777-3 LOINC Social History Type Status Start Date End Date Code Code Syst em Smoking History Never smoker (Never Smoked) 990682022 SNOMED CT Sex Male Vital Signs Vital Sign Value Unit [place] Value [place] Unit Date/Time Recent/Initial? Code Code System Body Mass Index 29.53 kg/m2 07/05/2023 09:13 Initial 72327 -5 [facility] Systolic Blood Pressure 138 mm[Hg] 07/05/2023 15:33 Most Recent 8480- 6 INC Diastolic Blood Pressure 81 mm[Hg] 07/05/2023 15:33 Most Recent 8462- 4 [facility] Systolic Blood Pressure 116 mm[Hg] 07/05/2023 09:13 Initial 8480- 6 [facility] Diastolic Blood Pressure 90 mm[Hg] 07/05/2023 09:13 Initial 8462- 4 [facility] Body Surface Area 2.10 m2 07/05/2023 09:13 Initial 3140- 1 LOINC Height 175.260 0 cm 69.00 in 07/05/2023 09:13 Initial 8302- 2 INC O2 Saturation 95 % 2023 15:33 Most Recent 57958 -5 INC O2 Saturation 95 % 2023 09:13 Initial 12529 -5 INC Pulse 80.0 /min 07/05/2023 15:33 Most Recent 8867- 4 INC Pulse 125.0 /min 07/05/2023 09:13 Initial 8867- 4 LOINC Respiration 18 /min 07/05/19 24 15:33 Most Recent 9279- 1 LOINC Respiration 16 /min 07/05/19 24 09:13 Initial 9279- 1 [facility] Temperature 34.8 Claudia 94.6 F 07/05/19 09:13 Initial 8310- 5 [facility] Weight 90.72 kg 200.00 lbs 07/05/2023 09:13 Initial 72254 -7 [facility] Medications Medication Start Date End Date Route Frequency Dose Code Code System Medication Instructions Home Meds Metoprolol Succinate 25MG Oral Tablet, Extended Release 07/05/2023 Unknown ORAL DAILY 1 TABLET 327255 RxNorm DON E 1 TABLET ORAL DAILY Eliquis 5MG Oral Tablet 07/05/2023 Unknown ORAL TWICE A DAY 1 TABLET 8426752 RxNorm TAKE 1 TABLET ORAL TWICE A [...] Date Status Code Code System PALPITATIONS active 05603418 SNOMED- CT AFIB 07/05/2023 resolved 91084738 SNOMED-CT TYPE 2 DIABETES 07/05/2023 resolved 57758346 SNO MED-CT HYPERTENSION 07/05/2023 resolved 66121432 SNOMED -CT Allergies and Adverse Reactions Allergy Substance Reaction Severity Start Date Concern Status Co de Code System LIPITOR Active 844375 RxNorm Plan of Treatment No Data Found Encounters Encounter Diagnosis Start Date Code Code Sys tem Palpitations 07/05/2023 SNOMED-CT Personal Care Team Section Performer Name Performer Role Active Date Inactive Da te
--- OUTSIDE RECORDS SUMMARY | 2024-02-04 12:22 | XMS_ITS ---
Author Organization Unknown Address [address] [place] [address] [phone] Phone Care Team Providers Care Paddock Judge Name Role Phone DANN Morgan Attending Unavailable [facility] Lemos Primary Unavailable Social History Type Status Start Date End Date Code Code Syst em Smoking History Never smoker (Never Smoked) 134640648 SNOMED CT Sex Male Medications Medication Start Date End Date Route Frequency Dose Code Code System Medication Instructions Home Meds Metoprolol Succinate 25MG Oral Tablet, Extended Release 07/05/2023 Unknown ORAL DAILY 1 TABLET 706120 RxNorm DON E 1 TABLET ORAL DAILY Eliquis 5MG Oral Tablet 07/05/2023 Unknown ORAL TWICE A DAY 1 TABLET 5468049 RxNorm TAKE 1 TABLET ORAL TWICE A [...] Date Status Code Code System PALPITATIONS active 07053543 SNOMED- CT AFIB 07/05/2023 resolved 89125637 SNOMED-CT TYPE 2 DIABETES 07/05/2023 resolved 94488781 SNO MED-CT HYPERTENSION 07/05/2023 resolved 06462614 SNOMED -CT Allergies and Adverse Reactions Allergy Substance Reaction Severity Start Date Concern Status Co de Code System LIPITOR Active 873344 RxNorm Plan of Treatment No Data Found Encounters Encounter Diagnosis Start Date Code Code Sys tem Atrial fibrillation 12/25/2023 12444256 SNOMED-C T Personal Care Team Section Performer Name Performer Role Active Date Inactive Da te
[2024-02-04 18:07] LABS: Hemoglobin A1C 6.2 % (<5.7)
[2024-02-04 18:48] LABS: ALT 27 U/L (16-63); AST 19 U/L (15-37); Albumin 3.7 g/dL (3.4-5.0); Alkaline Phosphatase 52 U/L (46-116); Anion Gap 10.3 mmol/L (3-11); BUN 15 mg/dL (7-18); Bilirubin, Total 0.45 mg/dL (0.2-1.0); CO2 25.7 mmol/L (21.0-32.0); CREATININE 0.8 mg/dL (0.70-1.30); Calcium 9.6 mg/dL (8.5-10.1); Calculated LDL 155 mg/dL (<100); Chloride 104 mmol/L (98-107); Cholesterol 238 mg/dL (<200); Estimated GFR 97.61 (mL/min/1.73m2); Glucose 122 mg/dL (74-106); HDL Cholesterol 54 mg/dL (40-60); Sodium 140 mmol/L (136-145); Total Protein 7.5 g/dL (6.4-8.2); Triglyceride 146 mg/dL (<150)
== END 2024-02-04 12:16 | disposition home or self-care (01) ==
LOC: NCHCN 12:15
PROVIDERS: PCP Family Medicine; Visit Provider Family Medicine
DX: I10 Essential (primary) hypertension (principal); E11.9 Type 2 diabetes mellitus without complications; E78.00 Pure hypercholesterolemia, unspecified
CPT/HCPCS: 80053; 80061; 83036

== ENCOUNTER 2024-02-11 16:02 | Outpatient (REF) | payer MEDICARE, SELFPAY ==
--- OUTSIDE RECORDS SUMMARY | 2024-02-11 16:04 | XMS_ITS ---
Author Organization Unknown Address [address] [place] [address] [phone] Phone Care Team Providers Care Director [employer] Name Role Phone JOURDAN GONSALES Registered Nurse Unavailable SHAHID Lemos Attending Unavailable MAC Lemos Primary Unavailable UNLISTED PROVIDER - REQUESTED Xhandoff Un available Results PT PROTHROMBIN TIME* - Colle ct Date/Time: 07/20/2022 10:44 [facility] ID: [id number] [address] [place] [address], [address] LOINC: 5902-2 Test Value Unit Reference Range Code Code System Flag PROTIME 10.4 seconds L=9.3 H=11.4 5902-2 LOINC INR 1.04 L=2.00 H=3.00 86505-3 LOINC L PTT PARTIAL THROMBOPLASTIN T JEAN* - Collect Date/Time: 07/20/2022 10:44 [facility] ID: [id number] [address] [place] [address], [id number] LOINC: 37036-8 Test Value Unit Reference Range Code Code System Flag PTT 24.8 seconds L=24.5 H=32.8 88182-9 LOINC TROPONIN HIGH SENSITIVITY* - Collect Date/Time: 07/20/2022 10:44 [facility] ID: [id number] [address] [place] [address], [address] LOINC: 10343-4 Test Value Unit Reference Range Code Code System Flag TROPONIN HS 7.2 pg/mL L=0.0 H=60.4 Specimen seq. RANDOM CBC W/ DIFFERENTIAL* - Colle ct Date/Time: 07/20/2022 10:44 [facility] ID: [id number] [address] [place] [address], [address] LOINC: 24708-9 Test Value Unit Reference Range Code Code System Flag WBC 11.03 th/cmm L=5.00 H=10.00 6690-2 LOINC H NEUT % 70.9 % L=40.0 H=80.0 LYMPH % 17.0 % L=10.0 H=50.0 MONO % 10.8 % L=2.0 H=12.0 08416-1 LOINC EOS % 0.5 % L=0.0 H=8.0 BASO % 0.3 % L=0.0 H=3.0 IG % 0.5 % L=0.0 H=1.1 2514-8 LOINC NRBC % 0.0 % L=0.0 H=0.0 37389-9 LOINC NEUT abs count 7.8 th/cmm L=1.6 H=8.4 751-8 LOINC LYMPH abs count 1.9 th/cmm L=1.5 H=4.0 731-0 LOINC MONO abs count 1.2 th/cmm L=0.2 H=1.0 742-7 LOINC H EOS abs count 0.1 th/cmm L=0.0 H=0.5 711-2 LOINC BASO abs count 0.0 th/cmm L=0.0 H=0.2 704-7 LOINC IG abs count 0.1 th/cmm L=0.0 H=0.1 34039-2 LOINC NRBC abs count 0.0 mil/cmm L=0.0 H=0.0 26403-2 LOINC RBC 5.02 mil/cmm L=4.30 H=6.20 789-8 [...] Date/Time: 07/20/2022 10:44 [facility] ID: [id number] [address] [place], [place], [address] LOINC: 09348-7 Test Value Unit Reference Range Code Code [...] H=34 2028-9 LOINC ANION GAP 7.7 mmol/L 03702-7 LOINC CALCIUM SERUM 9.0 mg/dL L=8.2 H=10.2 71463-2 LOINC AGE 62 years eGFR (non-Afr.Amer.) 84 mL/min 14916-5 LOINC eGFR (Afr-Colombian) 101 mL/min 93612-4 [facility]V - Co mpleted: 07/20/2022 10:56 LOINC: [facility] [place], [place] [address] PACS DIRECTOR QUALITY ASSURANCE REPORT Patient Name: HARRIS,RACQUEL W MRN: Sex: : Age: [id number] M [id number] Account: Accession: Admit: StayType: [id number] 07/20/2022 E/R Ordered: Order ID: Submitted: Ordering Provider: 07/20/2022 10:47 [id number] JEANNIE FORMAN Completed: Technologist: Resulted: 07/20/2022 10:56 [...] em Smoking History Never smoker (Never Smoked) 755040270 SNOMED CT Sex Male Vital Signs Vital Sign Value Unit [place] Value [place] Unit Date/Time Recent/Initial? Code Code System Body Mass Index 29.65 kg/m2 07/20/2022 10:36 Initial 66401 -5 LOINC Systolic Blood Pressure 120 mm[Hg] [...] Saturation 96 % 2022 12:30 Most Recent 76152 -5 LOINC O2 Saturation 97 % 2022 10:36 Initial 76903 -5 LOINC Pulse 77.0 /min 07/20/2022 12:30 Most Recent 8867- 4 LOINC Pulse 148.0 /min 07/20/2022 10:36 Initial 8867- 4 LOINC Respiration 16 /min 07/21/19 12:30 Most Recent 9279- 1 LOINC Respiration 10 /min 07/21/19 10:36 Initial 9279- 1 LOINC Temperature 35.7 Claudia 96.3 F 07/21/19 10:36 Initial 8310- 5 LOINC Weight 88.45 kg 195.00 lbs 07/20/2022 10:36 Initial 87176 -7 LOINC Medications Medication Start Date End Date Route Frequency Dose Code Code System Medication Instructions Home Meds Xarelto 20MG Oral Tablet 07/20/2022 04/14/2023 ORAL DAILY 1 TABLET 1599626 RxNorm TAKE 1 TABLET ORAL DAILY Metoprolol Succinate 25MG Oral Tablet, Extended Release 07/05/2023 Unknown ORAL DAILY 1 TABLET 103047 RxNorm TAKE 1 TABLET ORAL DAILY Eliquis 5MG Oral Tablet 07/05/2023 Unknown ORAL TWICE A DAY 1 TABLET 0738067 RxNorm TAKE 1 TABLET ORAL TWICE A [...] Date Status Code Code System PALPITATIONS active 92675324 SNOMED- CT AFIB 07/05/2023 resolved 70703617 SNOMED-CT TYPE 2 DIABETES 07/05/2023 resolved 45021857 SNO MED-CT HYPERTENSION 07/05/2023 resolved 41337445 SNOMED -CT Allergies and Adverse Reactions Allergy Substance Reaction Severity Start Date Concern Status Co de Code System LIPITOR Active 736345 RxNorm Plan of Treatment No Data Found Encounters Encounter Diagnosis Start Date Code Code Sys tem Unspecified atrial fibrillation 07/20/2022 SNOMED-CT Personal Care Team Section Performer Name Performer Role Active Date Inactive Da te
--- OUTSIDE RECORDS SUMMARY | 2024-02-11 16:04 | XMS_ITS | Encounter Summary ---
Author Organization [facility] Address [address] [place] [address] Care Team Providers Care Regulatory Affairs Internship Name Role Phone Sophia Beltran MD Primary Care Provide r Reason for Referral * Prior Authorization (See Order Priority) - Authorization Not Required Specialty Diagnoses / Procedures Referred By Contsangita t Referred To Contact Infusion Therapy Diagnoses Sammie Tejada MD [address] [facility], [address] [place] [address] [facility] [address] [place] [address] Referral ID Status Reason Start Date Expiration Date Visits Requested Visits Authorized [id number] Authorization Not Required Specialty Services Required 03/07/20 21 1 1 Question Answer Is this appt for transfusion, medication, test or injection? Infusion How many infusions need to be ordered for appt? 1 Infusion Name Other Please specify: Casirivimab/imdevimab Infusion Dose 1200 mg What is the infusion frequency? once Is this the first dose of infusion(s)? Yes Are labs to be obtained during the appt? No Does this have a lab dependency? This patient is not lab dependent Are preliminary tests complete (like MRI)? N/A Have orders been place for this appt? (i.e.: Blood Transfusion Order Set, Therapy Plan, Lab Orders, Supportive Plan, Etc) Yes Reason for Visit * Prior Authorization (See Order Priority) - Authorization Not Required Specialty Diagnoses / Procedures Referred By Contsangita t Referred To Contact Infusion Therapy Diagnoses Sammie Tejada MD [address] [facility], [address] [place] [address] [facility] [address] [place] [address] Referral ID Status Reason Start Date Expiration Date Visits Requested Visits Authorized [id number] Authorization Not Required Specialty Services Required 03/07/20 21 1 1 Encounter Details Date Type Department Care Team (Late st Contact Info) Description 03/08/2021 7:24 EDT - 03/08/2021 23:59 EDT Hospital Encounter [facility] [address] [address] Infusion, Monoclonal Antibody COVID Discharge Disposition: Home or Self Care Social History Tobacco Use Types Packs/Day Years Used Date Smoking Tobacco: Never Assessed Sex and Gender Information Value Date Recorded Sex Assigned at Not on file Gender Identity Male 03/07/2021 18:05 EDT Sexual Orientation Not on file documented as of this encounter Last Filed Vital Signs Vital Sign Reading Time Taken Comments Blood Pressure 122/68 03/08/2021 1731 EDT Pulse - - Temperature 36.2 ??C (97.2 ??F) 03/08/2021 1731 EDT Respiratory Rate 16 03/08/2021 1731 EDT Oxygen Saturation 98% 03/08/2021 173 EDT Inhaled Oxygen Concentration - - Weight - - Height - - Body Mass Index - - documented in this encounter Discharge Instructions * Discharge Instructions* Cindy Fajardo RN - 03/08/2021 7:27 EDT Images from the original note were not included. Today you received an infusion of a monoclonal antibody called REGEN-COV (casirivimab and imdevimab) for treatment of COVID-19 symptoms. After you are sent home you must continue with isolation precautions. Self isolate until all three criteria are met: - at least 24 hours have passed since last fever-reducing medications AND - symptoms have improved AND - at least 10 days after symptoms first appeared If you experience symptoms of delayed infusion reaction including Itching Nausea Dizziness Headache Rash Consult your medical doctor If you experience: Difficulty breathing or chest pain call 911 documented in this encounter Discharge Disposition Disposition Code Departure Means Destination Home or Self Snf documented in this encounter Progress Notes * Vicenta Benitez RN - 03/08/2021 1600 EDT Rodrick Marquez arrives to [facility] infusion room for REGEN-COV treatment of COVID 19related to ICD U07.1 VSS, Peripheral IV inserted. Consent and education for infusion performed by provider prior to arrival. Casirivimab-imdevimab initiated at 1606 Infusion completed at 1637. Pt remains for 1 hour post observation. Pt tolerated infusion without signs or symptoms of infusion reaction. Educated about importance of maintaining isolation protocol and signs and symptoms of delayed infusion reaction and when to call doctor. documented in this encounter Plan of Treatment Scheduled Referrals Name Type Priority Associated Diagnoses Order Schedule AMB CONS/FOLLOW UP SHEP 4 INFUSIONS Outpatient Referral Routine/Next Available COVID 1 Occurrences starting 03/08/2021 until 03/08/2021 documented as of this encounter Visit Diagnoses Diagnosis COVID documented in this encounter Administered Medications Inactive Administered Medications - up to 3 most recent administrations Medication Order MAR Action Action Date Dose Rate Site casirivimab-imdevimab 1,200 mg in sodium chloride (NS) 0.9 % 150 mL IVPB 1,200 mg, intravenous, Administer over 31 Minutes, NOW X1, 1 dose, On Thu03/08/21 at 1600, Indication: Therapeutic Use/Patient is COVID positive, Select appropriate high risk criteria as outlined by the EUA: Chronic lung diseases, Diabetes, Provider has discussed the information consistent with the Fact Sheet for Patients, Parents, and Caregivers. Yes, Patient has been informed that casirivimab-imdevimab is an unapproved drug that is authorized under a EUA; and understands the risks and benefits? Yes, Routine Given 03/08/2021 16:06 EDT 1,200 mg 310 mL/hr documented in this encounter Orders Medications Ordered That Efra ht Not Have Been Administered Count Last Ordered Date First Ordered Date acetaminophen (TYLENOL) tablet 650 mg 1 diphenhydrAMINE (BENADRYL) injection 50 mg 1 03/08/2021 EPINEPHrine (ADRENALIN) injection 0.3 mg 1 03/08/2021 lidocaine (PF) 10 mg/mL (1 % ) injection 2 mg 1 03/08/2021 methylPREDNISolone sod suc(P F) (SOLU-MEDROL) injection 100 mg 1 03/08/2021 ondansetron (PF) (ZOFRAN) injection 4 mg 1 03/08/2021 sodium chloride 0.9 % (flush) flush 10 mL 1 03/08/2021 sodium chloride 0.9 % (flush) flush 20 mL 1 03/08/2021 sodium chloride 0.9 % (NS) infusion 1 03/08 documented in this encounter Care Teams Regulatory Affairs Internship Relationship Specialty Start Date End Date Sophia Beltran MD [address] [address] PCP - General 03/07/21 documented as of this encounter
--- OUTSIDE RECORDS SUMMARY | 2024-02-11 16:04 | XMS_ITS | Clinical Summary ---
Author Organization [facility] Address [address] [place] [address] Care Team Providers Care Golf Course Designer Name Role Phone Sophia Beltran MD Primary Care Provide r Allergies Active Allergy Reactions Criticality Noted Date Comments Atorvastatin 03/08/2021 Social History Tobacco Use Types Packs/Day Years Used Date Smoking Tobacco: Never Assessed Sex and Gender Information Value Date Recorded Sex Assigned at Not on file Gender Identity Male 03/07/2021 18:05 EDT Sexual Orientation Not on file Last Filed Vital Signs Vital Sign Reading Time Taken Comments Blood Pressure 122/68 03/08/2021 1731 EDT Pulse - - Temperature 36.2 ??C (97.2 ??F) 03/08/2021 1731 EDT Respiratory Rate 16 03/08/2021 1731 EDT Oxygen Saturation 98% 03/08/2021 1731 EDT Inhaled Oxygen Concentration - - Weight - - Height - - Body Mass Index - - Plan of Treatment Health Maintenance Due Date Last Done Comments Hepatitis C Screen 1960 RSV Immunization ( o r 60+ Years) (1 - 1-dose 60+ series) 2018 Fall Risk Screening 2023 COVID-19 Vaccine (2022-24 season) 2023 Care Teams Golf Course Designer Relationship Specialty Start Date End Date Sophia Beltran MD 4 [facility] [address] [place] [address] PCP - General 03/07/21
--- OUTSIDE RECORDS SUMMARY | 2024-02-11 16:04 | XMS_ITS | Encounter Summary ---
Author Organization [facility] Address [address] [place] [address] Care Team Providers Care Medical Imaging Technologist Name Role Phone Sophia Beltran MD Primary Care Provide r Encounter Details Date Type Department Care Team (Late st Contact Info) Description 07/01/2023 Lab Requisition [facility] Pathology & Laboratory Medicine - [address] [address] Outr Resulting Lab, Provider Social History Tobacco Use Types Packs/Day Years Used Date Smoking Tobacco: Never Assessed Sex and Gender Information Value Date Recorded Sex Assigned at Not on file Gender Identity Male 03/07/2021 18:05 EDT Sexual Orientation Not on file documented as of this encounter Plan of Treatment Not on file documented as of this encounter Procedures Procedure Name Priority Date/Time Associated Diagnosis Comments PSA TOTAL, DIAGNOSTIC Routine 07/01/2023 7:35 EST documented in this encounter Results * PSA TOTAL, DIAGNOSTIC (07/01/2023 7:35 EST) PSA 1.8 <=4.5 ng/mL 07/01/2023 22:[address] [facility] Blood VENOUS BLOOD / Unknown 07/01/2023 7:35 EST 07/01/2023 21:08 EST [address] [facility] - 07/01/2023 22:30 EST NOTE: Serum PSA concentration should not be interpreted as absolute evidence for the presence or absence of malignant disease. Assayed on Siemens ADVIA Centaur XPT using chemiluminescent technology.??Values obtained by using different assay methods cannot be used interchangeably. Provider Outr Resulting Lab CHEMISTRY & BLOOD GAS ORDERABLES [facility] [address] [place] [address] documented in this encounter Visit Diagnoses Not on filedocumented in this encounter Care Teams Medical Imaging Technologist Relationship Specialty Start Date End Date Sophia Beltran MD 4 [facility] [address] [place] [id number] PCP - General 03/07/21 documented as of this encounter
--- OUTSIDE RECORDS SUMMARY | 2024-02-11 16:04 | XMS_ITS | Encounter Summary ---
Author Organization [facility] Address [address] [place] [address] Care Team Providers Care Retention Representative Name Role Phone Nasrin Cowan NP Primary Care Provider Sophia Beltran MD Primary Care Provide r Encounter Details Date Type Department Care Team (Late st Contact Info) Description 04/19/2020 Lab Requisition [facility] Pathology & Laboratory Medicine - [facility] [address], [place] [id number] Outr Resulting Lab, Provider Social History Tobacco [...] Associated Diagnosis Comments PSA TOTAL, DIAGNOSTIC Routine 04/18/2020 16:00 EST documented in this encounter Results * PSA TOTAL, DIAGNOSTIC (04/18/2020 16:00 EST) PSA 1.1 0.0 - 4.5 ng/mL 04/19/2020 19:14 EST [facility] Blood VENOUS BLOOD / Unknown 04/18/2020 16:00 EST 04/19/2020 17:53 EST Narrative [facility] - 04/19/2020 19:14 EST NOTE: Serum PSA concentration should not be interpreted as absolute evidence for the presence or absence of malignant disease. Assayed on Siemens ADVIA [employer] XPT using chemiluminescent technology.??Values obtained by using different assay methods cannot be used interchangeably. Provider Outr Resulting Lab CHEMISTRY & BLOOD GAS ORDERABLES [facility] [address] [place] [address] documented in this encounter Visit Diagnoses Not on filedocumented in this encounter Care Teams Retention Representative Relationship Specialty Start Date End Date Nasrin Cowan NP [address] [place] [address] PCP - General 03/23/15 03/06/21 Sophia Beltran MD 4 [facility] [address] [place], [place] [address] PCP - General 03/07/21 documented as of this encounter
--- OUTSIDE RECORDS SUMMARY | 2024-02-11 16:04 | XMS_ITS | Referral Summary ---
Author Organization [facility] Address [address] [place] [address] Care Team Providers Care Calender Runner Name Role Phone Sophia Beltran MD Primary [...] Mass Index - - Plan of Treatment Not on file Care Teams Calender Runner Relationship Specialty Start Date End Date Sophia Beltran MD [address] [place] [address] [address] [place] [address] PCP - General 03/07/21
--- OUTSIDE RECORDS SUMMARY | 2024-02-11 16:04 | XMS_ITS | Encounter Summary ---
Author Organization [facility] Address [address] [place] [address] Care Team Providers Care Hat Blocker Name Role Phone Unavailable Primary Care Provider Unavailabl e Encounter Details Date Type Department Care Team (Late st Contact Info) Description 10/09/2007 Results Only [facility] [address] [place] [address] Unknown, Provider, Social History Tobacco Use Types Packs/Day Years Used Date Smoking Tobacco: Never Assessed Sex and Gender Information Value Date Recorded Sex Assigned at Not on file Gender Identity Male 03/07/2021 18:05 EDT Sexual Orientation Not on file documented as of this encounter Plan of Treatment Not on file documented as of this encounter Procedures Procedure Name Priority Date/Time Associated Diagnosis Comments HELICOBACTER PYLORI IGG ANTIBODY Routine 10/09/2007 10:45 EDT documented in this encounter Results * HELICOBACTER PYLORI IGG ANTIBODY (10/09/2007 10:45 EDT) H Pylori IgG <0.4 U/mL [facility] Comment: Interpretation: ??Negative Negative is <0.9 U/mL Assayed utilizing the DPC Immulite 2500. Values may vary with other methods. 10/09/2007 10:4 5 EDT 10/10/2007 15:01 EDT Provider Unknown CHEMISTRY & BLOOD GA S ORDERABLES Performing Organization Address City/State/[facility] Co de Phone Number [facility] [address] [place] [address] documented in this encounter Visit Diagnoses Not on filedocumented in this encounter
--- OUTSIDE RECORDS SUMMARY | 2024-02-11 16:04 | XMS_ITS | Encounter Summary ---
Author Organization [facility] Address [address] [place] [address] Care Team Providers Care Dialysis Technician Name Role Phone Sophia Beltran MD Primary Care Provide r Encounter Details Date Type Department Care Team (Late st Contact Info) Description 03/07/2021 Prep for Procedure [facility] Infectious Disease - [address] [id number] Sammie Delgado MD [address] [facility], [address] [place] [address] Social History Tobacco Use Types Packs/Day Years Used Date Smoking Tobacco: Never Assessed Sex and Gender Information Value Date Recorded Sex Assigned at Not on file Gender Identity Male 03/07/2021 18:05 EDT Sexual Orientation Not on file documented as of this encounter H&P Notes * Sammie Delgado MD - 03/07/2021 1806 EDT I have been asked to order sars-cov-2 monoclonal antibodies on behalf of the patient's PCP as the PCP does not have infusion privileges at [facility]. I am trusting that the patient has a positive test orhigh risk exposure as defined in the EUA. I am trusting that the PCP has reviewed the EUA factsheetwith the patient. Sammie Delgado MD 03/07/2021 18:08 documented in this encounter Plan of Treatment Not on file documented as of this encounter Visit Diagnoses Not on filedocumented in this encounter Care Teams Dialysis Technician Relationship Specialty Start Date End Date Sophia Beltran MD [address] [address] PCP - General 03/07/21 documented as of this encounter
--- OUTSIDE RECORDS SUMMARY | 2024-02-11 16:04 | XMS_ITS | Encounter Summary ---
Author Organization [facility] Address [address] [place] [address] Care Team Providers Care Dye Jig Operator Name Role Phone Sophia Beltran MD Primary Care Provide r Encounter Details Date Type Department Care Team (Late st Contact Info) Description 04/22/2021 Lab Requisition [facility] Pathology & Laboratory Medicine - [address] [address] Outr Resulting Lab, Provider Social History Tobacco [...] Associated Diagnosis Comments PSA TOTAL, DIAGNOSTIC Routine 04/22/2021 7:20 EST documented in this encounter Results * PSA TOTAL, DIAGNOSTIC (04/22/2021 7:20 EST) PSA 1.5 0.0 - 4.5 ng/mL 04/23/2021 17:51 EST [facility] Blood VENOUS BLOOD / Unknown 04/22/2021 7:20 EST 04/23/2021 16:36 EST Narrative [facility] - 04/23/2021 17:51 EST NOTE: Serum PSA concentration should not be interpreted as absolute evidence for the presence or absence of malignant disease. Assayed on Siemens ADVIA Centaur XPT using chemiluminescent technology.??Values obtained by using different assay methods cannot be used interchangeably. Provider Outr Resulting Lab CHEMISTRY & BLOOD GAS ORDERABLES [facility] [address] [place] [address] documented in this encounter Visit Diagnoses Not on filedocumented in this encounter Care Teams Dye Jig Operator Relationship Specialty Start Date End Date Sophia Beltran MD 4 [facility] [address] [place] [id number] PCP - General 03/07/21 documented as of this encounter
--- OUTSIDE RECORDS SUMMARY | 2024-02-11 16:04 | XMS_ITS | Encounter Summary ---
Author Organization [facility] Address [address] [place] [address] Care Team Providers Care Supervisor Painting Department Name Role Phone Sophia Beltran MD Primary Care Provide r Encounter Details Date Type Department Care Team (Late st Contact Info) Description 05/30/2022 Lab Requisition [facility] Pathology & Laboratory Medicine - [address] [address] Outr Resulting Lab, Provider Social History Tobacco [...] Associated Diagnosis Comments PSA TOTAL, DIAGNOSTIC Routine 05/30/2022 9:35 EST documented in this encounter Results * PSA TOTAL, DIAGNOSTIC (05/30/2022 9:35 EST) PSA 1.4 <=4.5 ng/mL 05/30/2022 23:03 EST [facility] Blood VENOUS BLOOD / Unknown 05/30/2022 9:35 EST 05/30/2022 21:43 EST Narrative [facility] - 05/30/2022 23:03 EST NOTE: Serum PSA concentration should not be interpreted as absolute evidence for the presence or absence of malignant disease. Assayed on Siemens ADVIA Centaur XPT using chemiluminescent technology.??Values obtained by using different assay methods cannot be used interchangeably. Provider Outr Resulting Lab CHEMISTRY & BLOOD GAS ORDERABLES [facility] [address] [place] [address] documented in this encounter Visit Diagnoses Not on filedocumented in this encounter Care Teams Supervisor Painting Department Relationship Specialty Start Date End Date Sophia Beltran MD 4 [facility] [address] [place], [place] [address] PCP - General 03/07/21 documented as of this encounter
--- OUTSIDE RECORDS SUMMARY | 2024-02-11 16:04 | XMS_ITS | Encounter Summary ---
Author Organization [facility] Address [address] [place] [address] Care Team Providers Care Computerized Table Cutter Name Role Phone Sophia Beltran MD Primary Care Provide r Reason for Visit * Reason Comments EMG (Electomyography) * Consult, Test and Treat (Routine) - Authorization Not Required Specialty Diagnoses / Procedures Referred By Terese cain Referred To Contact Neurology Diagnoses Fasciculation Procedures EMG/NERVE CONDUCTION STUDY Sophia Beltran MD [address] [place] [address] [facility] [address] [place] [address] Referral ID Status Reason Start Date Expiration Date Visits Requested Visits Authorized [id number] Authorization Not Required 1 1 Encounter Details Date Type Department Care Team (Late st Contact Info) Description 06/25/2023 11:00 EST Procedure visit [facility] [address] [place] [address] Porter Mena MD [address] [place] [address] [place] [address] Cubital tunnel syndrome on left (Primary Dx); Fasciculations Social History Tobacco Use Types Packs/Day Years Used Date Smoking Tobacco: Never Assessed Sex and Gender Information Value Date Recorded Sex Assigned at Not on file Gender Identity Male 03/07/2021 18:05 EDT Sexual Orientation Not on file documented as of this encounter Procedure Notes * Porter Mena MD - 06/25/2023 1100 EST [facility] Clinical Neurophysiology Nerve Conduction and Electromyography Report PATIENT NAME: Rodrick Marquez PATIENT : 1960 PCP: Sophia Beltran DATE OF SERVICE: 06/25/2023 History: Rodrick Marquez is a 63 y.o. male who presents to EMG on referral by Sophia Beltran* for evaluation of upper extremity symptoms. He describes bilateral shoulder twitching, occasionally into the upper arms, since last February or so, without progression. It's mostly at night, on the side he'slying on. There's also nocturnal intermittent tingling of the 4th and 5th digits sometimes. No functional impairment of his arms at all. If he rolls on his back or gets out of bed the twitching stops. Exam: Limbs studied were warmed if necessary with moist heat, and skin temperature of the hands was measured at 33 deg C before starting the study. Motor: Normal bulk, tone and strength in the hands and the arms. DTRs: 1/4 bilateral brachioradialis, biceps and triceps Sensation: Intact pinprick in the hands and arms Electrodiagnostic Findings: Nerve Conduction: -The left median sensory peak latency was mildly prolonged (4.0 ms) with normal amplitude. The leftmedian motor onset latency was very subtly prolonged (4.3 ms) with normal amplitude and velocity. -The left ulnar sensory peak latency was mildly prolonged (3.8 ms) with normal amplitude. The left ulnar motor onset latency and amplitude were normal but the conduction velocity slowed across the elbow by 14 m/s. -The right ulnar sensory and motor responses were normal. -The left radial superficial sensory response was normal. EMG: -The left first dorsal interosseous showed mild chronic reinnervation with no active denervation changes. The left biceps, triceps, flexor digitorum profundus of digits 4 and 5, pronator teres, deltoid and trapezius were all normal. For waveforms/values/tables of EMG/nerve conduction study please see accompanying scanned document in the scans tab in EMR. Electrodiagnostic Impression: - This study was only mildly abnormal, showing mild left ulnar neuropathy at the elbow and mild left median neuropathy at the wrist. Given the ulnar nerve abnormalities and his symptoms this would fit a clinical diagnosis of mild left cubital tunnel syndrome. There is no evidence of left cervical radiculopathy or brachial plexopathy. There is no evidence of motor neuron disease, myopathy or myositis. Clinical Impression: -Given the mild abnormalities in the ulnar nerve on the left, without any evidence of axonal loss, conservative treatment of left ulnar neuropathy at the elbow would be reasonable. Could consider nocturnal elbow splinting to prevent hyperflexion while sleeping, or referral to Occupational Therapy. I advised him that if ever the numbness and tingling becomes permanent or he develops hand weakness that would certainly be a reason to get reevaluated and treated. He does not appear to have any symptoms associated with left median neuropathy at the wrist so there is no need for further evaluation or treatment. Finally, there is no evidence of any neurogenic or myogenic abnormality to cause twitch ing in his shoulders. This is likely musculoskeletal in etiology and could consider occupational therapy, massage therapy or other physical modalities for treatment. Porter Mena MD documented in this encounter Plan of Treatment Not on file documented as of this encounter Visit Diagnoses Diagnosis Cubital tunnel syndrome on left- Primary Lesion of ulnar nerve Fasciculations Abnormal involuntary movements documented in this encounter Care Teams Computerized Table Cutter Relationship Specialty Start Date End Date Sophia Beltran MD [address] [place] [address] PCP - General 03/07/21 documented as of this encounter
--- OUTSIDE RECORDS SUMMARY | 2024-02-11 16:04 | XMS_ITS | Encounter Summary ---
Author Organization [facility] Address [address] [place] [address] Care Team Providers Care Digestion Operator Name Role Phone Sophia Beltran MD Primary Care Provide r Reason for Referral * Prior Authorization (See Order Priority) - Authorization Not Required Specialty Diagnoses / Procedures Referred By Contsangita t Referred To Contact Infusion Therapy Diagnoses Sammie Tejada MD [address] [facility], [address] [place] [address] [facility] [address] [place] [address] Referral ID Status Reason Start Date Expiration Date Visits Requested Visits Authorized [id number] Authorization Not Required Specialty Services Required 03/07/20 [...] Plan, Lab Orders, Supportive Plan, Etc) Yes Encounter Details Date Type Department Care Team (Late st Contact Info) Description 03/07/2021 Orders Only [facility] [address] [place] [address] Amira Salazar, RN [address] [place] [address] COVID (Primary Dx) Social History Tobacco Use Types Packs/Day Years Used Date Smoking Tobacco: Never Assessed Sex and Gender Information Value Date Recorded Sex Assigned at Not on file Gender Identity Male 03/07/2021 18:05 EDT Sexual Orientation Not on file documented as of this encounter Plan of Treatment Scheduled Referrals Name Type Priority Associated Diagnoses Order Schedule AMB CONS/FOLLOW UP SHEP 4 INFUSIONS Outpatient Referral Routine/Next Available Covid Expected: 03/08/2021 (Approximate), Expires: 03/07/2022 documented as of this encounter Visit Diagnoses Diagnosis COVID- Primary documented in this encounter Care Teams Digestion Operator Relationship Specialty Start Date End Date Sophia Beltran MD [address] [place] [address] [address] [place] [address] PCP - General 03/07/21 documented as of this encounter
--- OUTSIDE RECORDS SUMMARY | 2024-02-11 16:04 | XMS_ITS ---
Author Organization Unknown Address [address] [place] [address] [phone] Phone Care Team Providers Care Post Graduate Internship Name Role Phone DANN CHOI Eddie Attending Unavailable MAC Lemos Primary Unavailable Social History Type Status Start Date End Date Code Code Syst em Smoking History Never smoker (Never Smoked) 510292222 SNOMED CT Sex Male Medications Medication Start Date End Date Route Frequency Dose Code Code System Medication Instructions Home Meds Xarelto 20MG Oral Tablet 07/20/2022 04/14/2023 ORAL DAILY 1 TABLET 1657170 RxNorm TAKE 1 TABLET ORAL DAILY Metoprolol Succinate 25MG Oral Tablet, Extended Release 07/05/2023 Unknown ORAL DAILY 1 TABLET 628503 RxNorm TAKE 1 TABLET ORAL DAILY Eliquis 5MG Oral Tablet 07/05/2023 Unknown ORAL TWICE A DAY 1 TABLET 8497495 RxNorm TAKE 1 TABLET ORAL TWICE A [...] Date Status Code Code System PALPITATIONS active 50929669 SNOMED- CT AFIB 07/05/2023 resolved 97058305 SNOMED-CT TYPE 2 DIABETES 07/05/2023 resolved 54342887 SNO MED-CT HYPERTENSION 07/05/2023 resolved 89871252 SNOMED -CT Allergies and Adverse Reactions Allergy Substance Reaction Severity Start Date Concern Status Co de Code System LIPITOR Active 277609 RxNorm Plan of Treatment No Data Found Encounters Encounter Diagnosis Start Date Code Code Sys tem Chest pain, unspecified 08/14/2022 SNOM ED-CT Personal Care Team Section Performer Name Performer Role Active Date Inactive Da te
--- OUTSIDE RECORDS SUMMARY | 2024-02-11 16:04 | XMS_ITS ---
Author Organization Unknown Address [address] [place] [address] [phone] Phone Care Team Providers Care Time Study Technician Name Role Phone BAUDILIOARGENTINA CHOI Eddie Attending Unavailable MAC Lemos Primary Unavailable Social History Type Status Start Date End Date Code Code Syst em Smoking History Never smoker (Never Smoked) 569816132 SNOMED CT Sex Male Medications Medication Start Date End Date Route Frequency Dose Code Code System Medication Instructions Home Meds Xarelto 20MG Oral Tablet 07/20/2022 04/14/2023 ORAL DAILY 1 TABLET 3575336 RxNorm TAKE 1 TABLET ORAL DAILY Metoprolol Succinate 25MG Oral Tablet, Extended Release 07/05/2023 Unknown ORAL DAILY 1 TABLET 617013 RxNorm TAKE 1 TABLET ORAL DAILY Eliquis 5MG Oral Tablet 07/05/2023 Unknown ORAL TWICE A DAY 1 TABLET 4461997 RxNorm TAKE 1 TABLET ORAL TWICE A [...] Date Status Code Code System PALPITATIONS active 02747516 SNOMED- CT AFIB 07/05/2023 resolved 05694764 SNOMED-CT TYPE 2 DIABETES 07/05/2023 resolved 11841263 SNO MED-CT HYPERTENSION 07/05/2023 resolved 46845666 SNOMED -CT Allergies and Adverse Reactions Allergy Substance Reaction Severity Start Date Concern Status Co de Code System LIPITOR Active 650292 RxNorm Plan of Treatment No Data Found Encounters Encounter Diagnosis Start Date Code Code Sys tem Paroxysmal atrial fibrillation 09/04/2022 981676133 SNOMED-CT Personal Care Team Section Performer Name Performer Role Active Date Inactive Da te
--- OUTSIDE RECORDS SUMMARY | 2024-02-11 16:05 | XMS_ITS ---
Author Organization Unknown Address [address] [place] [address] [phone] Phone Care Team Providers Care Supervisor Jewelry Department Name Role Phone DANN CHOI Eddie Attending Unavailable MAC Lemos Primary Unavailable Social History Type Status Start Date End Date Code Code Syst em Smoking History Never smoker (Never Smoked) 126371702 SNOMED CT Sex Male Medications Medication Start Date End Date Route Frequency Dose Code Code System Medication Instructions Home Meds Xarelto 20MG Oral Tablet 07/20/2022 04/14/2023 ORAL DAILY 1 TABLET 0001824 RxNorm TAKE 1 TABLET ORAL DAILY Metoprolol Succinate 25MG Oral Tablet, Extended Release 07/05/2023 Unknown ORAL DAILY 1 TABLET 881851 RxNorm TAKE 1 TABLET ORAL DAILY Eliquis 5MG Oral Tablet 07/05/2023 Unknown ORAL TWICE A DAY 1 TABLET 1216519 RxNorm TAKE 1 TABLET ORAL TWICE A [...] Date Status Code Code System PALPITATIONS active 33043969 SNOMED- CT AFIB 07/05/2023 resolved 08325183 SNOMED-CT TYPE 2 DIABETES 07/05/2023 resolved 29749006 SNO MED-CT HYPERTENSION 07/05/2023 resolved 15881129 SNOMED -CT Allergies and Adverse Reactions Allergy Substance Reaction Severity Start Date Concern Status Co de Code System LIPITOR Active 854928 RxNorm Plan of Treatment No Data Found Encounters Encounter Diagnosis Start Date Code Code Sys tem Chest pain 02/19/2023 43122445 SNOMED-CT Personal Care Team Section Performer Name Performer Role Active Date Inactive Da te
--- OUTSIDE RECORDS SUMMARY | 2024-02-11 16:05 | XMS_ITS ---
Author Organization Unknown Address [address] [place] [address] [phone] Phone Care Team Providers Care Contracts Representative Name Role Phone NEETU GRACE Guerra Attending Unavailable MAC Lemos Primary Unavailable Social History Type Status Start Date End Date Code Code Syst em Smoking History Never smoker (Never Smoked) 026984900 SNOMED CT Sex Male Medications Medication Start Date End Date Route Frequency Dose Code Code System Medication Instructions Home Meds Xarelto 20MG Oral Tablet 07/20/2022 04/14/2023 ORAL DAILY 1 TABLET 4577088 RxNorm TAKE 1 TABLET ORAL DAILY Metoprolol Succinate 25MG Oral Tablet, Extended Release 07/05/2023 Unknown ORAL DAILY 1 TABLET 340897 RxNorm TAKE 1 TABLET ORAL DAILY Eliquis 5MG Oral Tablet 07/05/2023 Unknown ORAL TWICE A DAY 1 TABLET 5092988 RxNorm TAKE 1 TABLET ORAL TWICE A [...] Date Status Code Code System PALPITATIONS active 56327768 SNOMED- CT AFIB 07/05/2023 resolved 57980185 SNOMED-CT TYPE 2 DIABETES 07/05/2023 resolved 96425725 SNO MED-CT HYPERTENSION 07/05/2023 resolved 07612296 SNOMED -CT Allergies and Adverse Reactions Allergy Substance Reaction Severity Start Date Concern Status Co de Code System LIPITOR Active 424601 RxNorm Plan of Treatment No Data Found Encounters Encounter Diagnosis Start Date Code Code Sys tem Atrial fibrillation 08/29/2022 91403956 SNOMED-C T Personal Care Team Section Performer Name Performer Role Active Date Inactive Da te
--- OUTSIDE RECORDS SUMMARY | 2024-02-11 16:05 | XMS_ITS ---
Author Organization Unknown Address [address] [place] [address] [phone] Phone Care Team Providers Care Trimmer Hand Name Role Phone NEETU ROMANOOMI Mari Attending Unavailable MAC Lemos Primary Unavailable Social History Type Status Start Date End Date Code Code Syst em Smoking History Never smoker (Never Smoked) 388103441 SNOMED CT Sex Male Medications Medication Start Date End Date Route Frequency Dose Code Code System Medication Instructions Home Meds Xarelto 20MG Oral Tablet 07/20/2022 04/14/2023 ORAL DAILY 1 TABLET 4621011 RxNorm TAKE 1 TABLET ORAL DAILY Metoprolol Succinate 25MG Oral Tablet, Extended Release 07/05/2023 Unknown ORAL DAILY 1 TABLET 453199 RxNorm TAKE 1 TABLET ORAL DAILY Eliquis 5MG Oral Tablet 07/05/2023 Unknown ORAL TWICE A DAY 1 TABLET 2304725 RxNorm TAKE 1 TABLET ORAL TWICE A [...] Date Status Code Code System PALPITATIONS active 11667134 SNOMED- CT AFIB 07/05/2023 resolved 10607196 SNOMED-CT TYPE 2 DIABETES 07/05/2023 resolved 37707024 SNO MED-CT HYPERTENSION 07/05/2023 resolved 03883825 SNOMED -CT Allergies and Adverse Reactions Allergy Substance Reaction Severity Start Date Concern Status Co de Code System LIPITOR Active 631308 RxNorm Plan of Treatment No Data Found Encounters Encounter Diagnosis Start Date Code Code Sys tem Obstructive sleep apnea (adult) (pediatric) 02/25/2023 SNOMED-CT Personal Care Team Section Performer Name Performer Role Active Date Inactive Da te
--- OUTSIDE RECORDS SUMMARY | 2024-02-11 16:05 | XMS_ITS ---
Author Organization Unknown Address [address] [place] [address] [phone] Phone Care Team Providers Care Telephone Sterilizer Name Role Phone NEETU GRACE Mari Attending Unavailable MAC Lemos Primary Unavailable Social History Type Status Start Date End Date Code Code Syst em Smoking History Never smoker (Never Smoked) 603315412 SNOMED CT Sex Male Medications Medication Start Date End Date Route Frequency Dose Code Code System Medication Instructions Home Meds Xarelto 20MG Oral Tablet 07/20/2022 04/14/2023 ORAL DAILY 1 TABLET 4743148 RxNorm TAKE 1 TABLET ORAL DAILY Metoprolol Succinate 25MG Oral Tablet, Extended Release 07/05/2023 Unknown ORAL DAILY 1 TABLET 670065 RxNorm TAKE 1 TABLET ORAL DAILY Eliquis 5MG Oral Tablet 07/05/2023 Unknown ORAL TWICE A DAY 1 TABLET 4368696 RxNorm TAKE 1 TABLET ORAL TWICE A [...] Date Status Code Code System PALPITATIONS active 29280977 SNOMED- CT AFIB 07/05/2023 resolved 25251246 SNOMED-CT TYPE 2 DIABETES 07/05/2023 resolved 12442353 SNO MED-CT HYPERTENSION 07/05/2023 resolved 70097305 SNOMED -CT Allergies and Adverse Reactions Allergy Substance Reaction Severity Start Date Concern Status Co de Code System LIPITOR Active 322824 RxNorm Plan of Treatment No Data Found Encounters Encounter Diagnosis Start Date Code Code Sys tem Obstructive sleep apnea (adult) (pediatric) 10/08/2022 SNOMED-CT Personal Care Team Section Performer Name Performer Role Active Date Inactive Da te
--- OUTSIDE RECORDS SUMMARY | 2024-02-11 16:07 | XMS_ITS ---
Author Organization Unknown Address [address] [place] [address] [phone] Phone Care Team Providers Care Community Health Representative Name Role Phone REMEDIOS YEAGER Registered Nurse Unavailable TERRI HERNANDEZ Registered Nurse Unavailable AMY Guerra Attending Unavailable MAC Lemos Primary Unavailable UNLISTED PROVIDER - REQUESTED Xhandoff Un available Results COMPREHENSIVE METABOLIC PANE L (CMP) - Collect Date/Time: 07/05/2023 09:05 [facility] ID: [id number] [address] [place] [address], [address] LOINC: 70725-3 Test Value Unit Reference Range Code Code [...] H=34 2028-9 LOINC ANION GAP 11.1 mmol/L 59710-6 LOINC CALCIUM SERUM 9.1 mg/dL L=8.2 H=10.2 41316-8 LOINC BILIRUBIN TOTAL 0.5 mg/dL L=0.0 H=1.3 1975-2 LOINC ALK. PHOS. 47 U/L L=46 H=116 6768-6 LOINC SGOT (AST) 18 U/L L=15 H=37 1920-8 LOINC SGPT (ALT) 32 U/L L=12 H=78 1742-6 LOINC TOTAL PROTEIN 8.0 gm/dL L=6.0 H=8.0 2885-2 LOINC ALBUMIN 3.5 gm/dL L=3.4 H=5.0 1751-7 LOINC AGE 63 years eGFR (non-Afr.Amer.) 86 mL/min 17695-3 LOINC eGFR (Afr-Maltese) 104 mL/min 36329-4 LOINC CBC W/ DIFFERENTIAL* - Colle ct Date/Time: 07/05/2023 09:05 [facility] ID: [id number] [address] [place], [place], [facility] LOINC: 07831-7 Test Value Unit Reference Range Code Code System Flag WBC 9.13 th/cmm L=5.00 H=10.00 6690-2 LOINC NEUT % 59.9 % L=40.0 H=80.0 LYMPH % 29.4 % L=10.0 H=50.0 MONO % 8.2 % L=2.0 H=12.0 85255-8 LOINC EOS % 1.3 % L=0.0 H=8.0 BASO % 0.3 % L=0.0 H=3.0 IG % 0.9 % L=0.0 H=1.1 2514-8 LOINC NRBC % 0.0 % L=0.0 H=0.0 05651-0 LOINC NEUT abs count 5.5 th/cmm L=1.6 H=8.4 751-8 LOINC LYMPH abs count 2.7 th/cmm L=1.5 H=4.0 731-0 LOINC MONO abs count 0.8 th/cmm L=0.2 H=1.0 742-7 LOINC EOS abs count 0.1 th/cmm L=0.0 H=0.5 711-2 LOINC BASO abs count 0.0 th/cmm L=0.0 H=0.2 704-7 LOINC IG abs count 0.1 th/cmm L=0.0 H=0.1 00329-4 LOINC NRBC abs count 0.0 mil/cmm L=0.0 H=0.0 81399-4 LOINC RBC 5.39 mil/cmm L=4.30 H=6.20 789-8 [...] em Smoking History Never smoker (Never Smoked) 962403928 SNOMED CT Sex Male Vital Signs Vital Sign Value Unit Dukes Value Dukes Unit Date/Time Recent/Initial? Code Code System Body Mass Index 29.53 kg/m2 07/05/2023 09:13 Initial 81813 -5 [facility] Systolic Blood Pressure 138 mm[Hg] 07/05/2023 15:33 Most Recent 8480- 6 [facility] Diastolic Blood Pressure 81 mm[Hg] 07/05/2023 15:33 Most Recent 8462- 4 [facility] Systolic Blood Pressure 116 mm[Hg] 07/05/2023 09:13 Initial 8480- 6 [facility] Diastolic Blood Pressure 90 mm[Hg] 07/05/2023 09:13 Initial 8462- 4 [facility] Body Surface Area 2.10 m2 07/05/2023 09:13 Initial 3140- 1 [facility] Height 175.260 0 cm 69.00 in 07/05/2023 09:13 Initial 8302- 2 [facility] O2 Saturation 95 % 2023 15:33 Most Recent 73469 -5 INC O2 Saturation 95 % 2023 09:13 Initial 55961 -5 [facility] Pulse 80.0 /min 07/05/2023 15:33 Most Recent 8867- 4 INC Pulse 125.0 /min 07/05/2023 09:13 Initial 8867- 4 [facility] Respiration 18 /min 07/05/19 24 15:33 Most Recent 9279- 1 LOINC Respiration 16 /min 07/05/19 24 09:13 Initial 9279- 1 [facility] Temperature 34.8 Claudia 94.6 F 07/05/19 09:13 Initial 8310- 5 [facility] Weight 90.72 kg 200.00 lbs 07/05/2023 09:13 Initial 23715 -7 [facility] Medications Medication Start Date End Date Route Frequency Dose Code Code System Medication Instructions Home Meds Metoprolol Succinate 25MG Oral Tablet, Extended Release 07/05/2023 Unknown ORAL DAILY 1 TABLET 101843 RxNorm DON E 1 TABLET ORAL DAILY Eliquis 5MG Oral Tablet 07/05/2023 Unknown ORAL TWICE A DAY 1 TABLET 4362379 RxNorm TAKE 1 TABLET ORAL TWICE A [...] Date Status Code Code System PALPITATIONS active 59102083 SNOMED- CT AFIB 07/05/2023 resolved 22613289 SNOMED-CT TYPE 2 DIABETES 07/05/2023 resolved 62264982 SNO MED-CT HYPERTENSION 07/05/2023 resolved 40005869 SNOMED -CT Allergies and Adverse Reactions Allergy Substance Reaction Severity Start Date Concern Status Co de Code System LIPITOR Active 997167 RxNorm Plan of Treatment No Data Found Encounters Encounter Diagnosis Start Date Code Code Sys tem Palpitations 07/05/2023 SNOMED-CT Personal Care Team Section Performer Name Performer Role Active Date Inactive Da te
--- OUTSIDE RECORDS SUMMARY | 2024-02-11 16:07 | XMS_ITS ---
Author Organization Unknown Address [address] [place] [address] [phone] Phone Care Team Providers Care Supervisor Fusing Room Name Role Phone NEETU ROMANOOMI Mari Attending Unavailable MAC Lemos Primary Unavailable Social History Type Status Start Date End Date Code Code Syst em Smoking History Never smoker (Never Smoked) 385925629 SNOMED CT Sex Male Medications Medication Start Date End Date Route Frequency Dose Code Code System Medication Instructions Home Meds Metoprolol Succinate 25MG Oral Tablet, Extended Release 07/05/2023 Unknown ORAL DAILY 1 TABLET 527784 RxNorm DON E 1 TABLET ORAL DAILY Eliquis 5MG Oral Tablet 07/05/2023 Unknown ORAL TWICE A DAY 1 TABLET 2343342 RxNorm TAKE 1 TABLET ORAL TWICE A [...] Date Status Code Code System PALPITATIONS active 34117804 SNOMED- CT AFIB 07/05/2023 resolved 21626649 SNOMED-CT TYPE 2 DIABETES 07/05/2023 resolved 83132098 SNO MED-CT HYPERTENSION 07/05/2023 resolved 68534653 SNOMED -CT Allergies and Adverse Reactions Allergy Substance Reaction Severity Start Date Concern Status Co de Code System LIPITOR Active 806559 RxNorm Plan of Treatment No Data Found Encounters Encounter Diagnosis Start Date Code Code Sys tem Obstructive sleep apnea (adult) (pediatric) 07/01/2023 SNOMED-CT Personal Care Team Section Performer Name Performer Role Active Date Inactive Da te
--- OUTSIDE RECORDS SUMMARY | 2024-02-11 16:07 | XMS_ITS ---
Author Organization Unknown Address [address] [place] [address] [phone] Phone Care Team Providers Care Spray Rig Operator Name Role Phone DANN Morgan Attending Unavailable MAC Lemos Primary Unavailable Social History Type Status Start Date End Date Code Code Syst em Smoking History Never smoker (Never Smoked) 823335154 SNOMED CT Sex Male Medications Medication Start Date End Date Route Frequency Dose Code Code System Medication Instructions Home Meds Metoprolol Succinate 25MG Oral Tablet, Extended Release 07/05/2023 Unknown ORAL DAILY 1 TABLET 065502 RxNorm DON E 1 TABLET ORAL DAILY Eliquis 5MG Oral Tablet 07/05/2023 Unknown ORAL TWICE A DAY 1 TABLET 7160428 RxNorm TAKE 1 TABLET ORAL TWICE A [...] Date Status Code Code System PALPITATIONS active 40758348 SNOMED- CT AFIB 07/05/2023 resolved 26151930 SNOMED-CT TYPE 2 DIABETES 07/05/2023 resolved 85361926 SNO MED-CT HYPERTENSION 07/05/2023 resolved 03454711 SNOMED -CT Allergies and Adverse Reactions Allergy Substance Reaction Severity Start Date Concern Status Co de Code System LIPITOR Active 050728 RxNorm Plan of Treatment No Data Found Encounters Encounter Diagnosis Start Date Code Code Sys tem Atrial fibrillation 12/25/2023 38314778 SNOMED-C T Personal Care Team Section Performer Name Performer Role Active Date Inactive Da te
--- OUTSIDE RECORDS SUMMARY | 2024-02-11 16:07 | XMS_ITS ---
Author Organization Unknown Address [address] [place] [address] [phone] Phone Care Team Providers Care Formula Maker Name Role Phone AUDELIA Lemos Attending Unavailable MAC Lemos Primary Unavailable Social History Type Status Start Date End Date Code Code Syst em Smoking History Never smoker (Never Smoked) 422065179 SNOMED CT Sex Male Medications Medication Start Date End Date Route Frequency Dose Code Code System Medication Instructions Home Meds Xarelto 20MG Oral Tablet 07/20/2022 04/14/2023 ORAL DAILY 1 TABLET 9803188 RxNorm TAKE 1 TABLET ORAL DAILY Metoprolol Succinate 25MG Oral Tablet, Extended Release 07/05/2023 Unknown ORAL DAILY 1 TABLET 213279 RxNorm TAKE 1 TABLET ORAL DAILY Eliquis 5MG Oral Tablet 07/05/2023 Unknown ORAL TWICE A DAY 1 TABLET 9298220 RxNorm TAKE 1 TABLET ORAL TWICE A [...] Date Status Code Code System PALPITATIONS active 25126913 SNOMED- CT AFIB 07/05/2023 resolved 61700136 SNOMED-CT TYPE 2 DIABETES 07/05/2023 resolved 69334712 SNO MED-CT HYPERTENSION 07/05/2023 resolved 13178837 SNOMED -CT Allergies and Adverse Reactions Allergy Substance Reaction Severity Start Date Concern Status Co de Code System LIPITOR Active 846309 RxNorm Plan of Treatment No Data Found Encounters Encounter Diagnosis Start Date Code Code Sys tem Supraventricular tachycardia 03/31/2023 8943558 SNOMED-CT Personal Care Team Section Performer Name Performer Role Active Date Inactive Da te
[2024-02-11 21:29] LABS: COMMENT (LAB VIEW ONLY) 47.08 mg/dL; Microalb ug/mg Crea 17.6 ug/mg Cr
== END 2024-02-11 16:03 | disposition home or self-care (01) ==
LOC: NCHCN 16:02
PROVIDERS: PCP Family Medicine; Visit Provider Family Medicine
DX: E11.9 Type 2 diabetes mellitus without complications (principal)
CPT/HCPCS: 82043; 82570

== ENCOUNTER 2024-08-12 17:33 | Outpatient (REF) | payer MEDICARE, SELFPAY ==
[2024-08-15 09:39] LABS: PSA, Screening 1.7 ng/mL (<=4.5)
== END 2024-08-12 17:34 | disposition home or self-care (01) ==
LOC: NCHCN 17:33
PROVIDERS: PCP Family Medicine; Visit Provider Family Medicine
DX: Z12.5 Encounter for screening for malignant neoplasm of prostate (principal)
CPT/HCPCS: 84153

== ENCOUNTER 2025-02-07 10:25 | Outpatient (REF) | payer MEDICARE, SELFPAY ==
[2025-02-07 16:23] LABS: ALT 25 U/L (16-63); AST 16 U/L (15-37); Albumin 3.4 g/dL (3.4-5.0); Alkaline Phosphatase 44 U/L (46-116); Anion Gap 9.2 mmol/L (3-11); BUN 13 mg/dL (7-18); Bilirubin, Total 0.4 mg/dL (0.2-1.0); CO2 26.8 mmol/L (21.0-32.0); Calcium 9.4 mg/dL (8.5-10.1); Calculated LDL 73 mg/dL (<100); Chloride 104 mmol/L (98-107); Cholesterol 152 mg/dL (<200); Estimated GFR 100.99 (mL/min/1.73m2); Glucose 114 mg/dL (74-106); HDL Cholesterol 52 mg/dL (>or=40); Potassium 4.1 mmol/L (3.5-5.1); Sodium 140 mmol/L (136-145); Total Protein 7.3 g/dL (6.4-8.2); Triglyceride 138 mg/dL (<150)
[2025-02-07 18:04] LABS: Hemoglobin A1C 6.1 % (<5.7)
== END 2025-02-07 10:26 | disposition home or self-care (01) ==
LOC: NCHCN 10:25
PROVIDERS: PCP Family Medicine; Visit Provider Family Medicine
DX: E11.9 Type 2 diabetes mellitus without complications (principal)
CPT/HCPCS: 80053; 80061; 83036

== ENCOUNTER 2025-02-14 17:36 | Outpatient (REF) | payer MEDICARE, SELFPAY ==
[2025-02-14 15:27] LABS: COMMENT (LAB VIEW ONLY) 39.83 mg/dL; Microalb ug/mg Crea 11.3 ug/mg Cr
== END 2025-02-14 17:37 | disposition home or self-care (01) ==
LOC: NCHCN 17:36
PROVIDERS: PCP Family Medicine; Visit Provider Family Medicine
DX: E11.9 Type 2 diabetes mellitus without complications (principal)
CPT/HCPCS: 82043; 82570

== ENCOUNTER 2025-04-04 08:14 | Outpatient (REF) | payer MEDICARE, SELFPAY ==
[2025-04-04 16:41] LABS: Cholesterol 97 mg/dL (<200); HDL Cholesterol 53 mg/dL (>40)
[2025-04-05 14:01] LABS: PSA, Diagnostic 1.5 ng/mL (<=4.5)
== END 2025-04-04 08:15 | disposition home or self-care (01) ==
LOC: NCHCN 08:14
PROVIDERS: PCP Family Medicine; Visit Provider Family Medicine
DX: E78.5 Hyperlipidemia, unspecified (principal); N40.2 Nodular prostate without lower urinary tract symptoms
CPT/HCPCS: 80061; 84153